=== PATIENT | male | born 1970 | race Caucasian/White ===

== ENCOUNTER 2019-06-17 09:42 | Outpatient (CLI) | payer OTHER, SELFPAY ==
--- NOTE | 2019-06-17 11:00 | NEURO_ITS ---
Patient Number: [id number] Impression: # Complains of left hand numbness. # Mild evolving left Carpal Tunnel Syndrome # Subtle early ulnar neuropathy. # Normal needle/EMG exam. # Clinical correlation recommended. Nerve Conduction Studies Anti Sensory Summary Table Stim Site NR Peak (ms) P-T Amp (?V) Site1 Site2 Delta-P (ms) Dist (cm) Manuel (m/s) Left Median Anti Sensory (2-3nd Digit) Wrist 3.5 22.8 Wrist 2-3nd Digit 3.5 14.0 40 Wrist 3.5 38.7 Wrist 2-3nd Digit 3.5 14.0 40 Left Radial Anti Sensory (Base 1st Digit) Wrist 1.9 21.4 Wrist Base 1st Digit 1.9 0.0 Left Ulnar Anti Sensory (5th Digit) Wrist 2.3 33.0 Wrist 5th Digit 2.3 14.0 61 Motor Summary Table Stim Site NR Onset (ms) O-P Amp (mV) Site1 Site2 Delta-0 (ms) Dist (cm) Manuel (m/s) Left Median Motor (Abd Poll Brev) Wrist 3.8 2.9 Elbow Wrist 4.6 30.0 65 Elbow 8.4 0.7 Left Ulnar Motor (Abd Dig Minimi) Wrist 2.5 4.6 A Elbow Wrist 5.6 33.0 59 A Elbow 8.1 4.0 F Wave Studies NR F-Lat (ms) L-R F-Lat (ms) Left Median (Mrkrs) (Abd Poll Brev) 30.04 Left Ulnar (Mrkrs) (Abd Dig Min) 28.67 EMG Side Muscle Nerve Root Ins Act Fibs Amp Dur Recrt Comment Left 1stDorInt Ulnar C8-T1 Nml Nml Nml Nml Nml Left Ext Indicis Radial (Post Int) C7-8 Nml Nml Nml Nml Nml Left Ext Digitorum Radial (Post Int) C7-8 Nml Nml Nml Nml Nml Left BrachioRad Radial C5-6 Nml Nml Nml Nml Nml Left PronatorTeres Median C6-7 Nml Nml Nml Nml Nml Left Abd Poll Brev Median C8-T1 Nml Nml Nml Nml Nml MTDD
== END 2019-06-17 09:43 | disposition home or self-care (01) ==
PROVIDERS: PCP Family Medicine; Visit Provider Orthopaedic Surgery
DX: G56.02 Carpal tunnel syndrome, left upper limb (principal)
CPT/HCPCS: 95886; 95909

== ENCOUNTER 2019-06-30 14:06 | Outpatient (CLI) | payer OTHER, SELFPAY ==
--- NOTE | ~2019-06-30 | XR_ITS ---
EXAMINATION: XR chest 2V 06/30/2019 14:23 INDICATION: Cough and nasal congestion for 3 weeks PROCEDURE: 2 view chest COMPARISON: No prior studies for comparison. FINDINGS: The lungs are clear. The cardiomediastinal silhouette is within normal limits. There are no pleural effusions. There is no pneumothorax suspected. IMPRESSION: 1: NO ACUTE CARDIOPULMONARY DISEASE. Reviewed, dictated and finalized at location B. OLOGY NURSE
--- NOTE | ~2019-06-30 | XR_ITS ---
XR sinus min 3V 06/30/2019 14:22 Indication: Cough and nasal congestion Procedure: 5 views of the paranasal sinuses Comparison: No prior studies for comparison. Findings: The paranasal sinuses are pneumatized. No air-fluid levels or significant opacification. Or bits are symmetric. Mastoids are pneumatized. No significant nasal septal deviation. Impression: 1: No significant abnormality of the paranasal sinuses. Reviewed, dictated and finalized at location B. EACH NURSE Impression: 1: No significant abnormality of the paranasal sinuses.
== END 2019-06-30 14:07 | disposition home or self-care (01) ==
PROVIDERS: PCP Family Medicine; Visit Provider Family Medicine
DX: R05 Cough (principal); R09.81 Nasal congestion
CPT/HCPCS: 70220; 71046

== ENCOUNTER 2019-07-09 08:03 | Outpatient (CLI) | payer OTHER, SELFPAY ==
--- NOTE | 2019-07-17 13:46 | SLEEP_ITS ---
CPAP BiPAP titration. DATE OF STUDY: 07/09/2019 REASON FOR THE STUDY: Known sleep apnea, poor response to AutoPAP. HISTORY: This patient is a 49-year-old male, 69 inches tall, weighing 250 pounds with a body mass index of 36.9. He has had ongoing complaints mainly regarding excessive daytime sleepiness and fatigue no matter how much sleep he gets. On April 03, 2018, he had a home sleep test, which showed equal numbers of central and obstructive apneas as well as hypopneas and desaturation. His Adrian Sleepiness Scale score was 11. A CPAP titration was recommended, but insurance preferred an AutoPAP, which he has been using with good compliance. At his last office visit on May 28, 2019, he had greater than 70% usage for greater than 4 hours per night. His initial apnea-hypopnea index was 11.3. Using AutoPAP, his AHI is 6.9. His average pressure is 10.9 cm of water. He feels some benefit from using CPAP, but not sufficient amounts, so he returns at this time for an in-lab titration. MEDICAL COMORBIDITIES: He has no chronic medical conditions, but he has had a tonsillectomy, a rotator cuff repair, and scrotum surgery. MEDICATIONS: Naprosyn 220 mg b.i.d. p.r.n. pain. HABITS: Never smoked tobacco. Caffeine, 4-5 servings per day. No alcohol. No recreational drugs. The patient rarely snores and others do not report that he snores, but others do report that he has breathing problems at night. He rarely sweats excessively at night. He rarely notices his heart pounding irregularly at night. He occasionally falls asleep during the day, never involuntarily, never while driving or with physical effort. He does not lose muscle tone with strong emotion. He rarely has daytime difficulty due to excessive sleepiness. 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 He does not feel paralyzed on waking or falling asleep and does not have vivid dreamlike scenes upon awakening or falling asleep. He is never afraid to go to sleep. He denies having nightmares. He occasionally remembers his dreams. He denies racing thoughts. He rarely feels sad or depressed. He does not have anxiety. He frequently has muscular tension and frequently notices parts of his body jerking. He denies kicking at night. He rarely has crawly achy feelings in his legs. He does not have leg pain at night. He rarely has morning jaw pain. He occasionally grinds his teeth. He frequently is bothered by pain during the day, rarely is awakened by pain at night. He frequently wakes up feeling stiff in the morning with sore achy muscles on occasion. He frequently has pain in the neck and spine on awakening. He has constant fatigue. He goes to bed at 10 p.m., falling asleep in 5-10 minutes, waking at night to go to the bathroom or get a drink of water. He wakes for the day at 5:45 a.m. He estimates 7-8 hours of sleep at night. Weekend schedule shows he stays up an hour later and he will wake 2 hours later. He does take naps in the afternoon or evening. A short nap is not refreshing. He is drowsy in the morning for 3 hours or longer. DESCRIPTION OF THE STUDY: On the Adrian Sleepiness Scale, his score is 11. This was conducted as a full night CPAP BiPAP titration using the [employer] multiple channel system including EOG, EEG, submental EMG, EKG, nasal and oral airflow using thermistors and nasal pressure sensors, chest and abdominal belts, body position data and pulse oximetry. This study was scored using CMS guidelines. The patient used a medium Haley View full face mask and heated humidity. CPAP was started at 5 cm, gradually increased to 17 cm before switching to bilevel. He had central apneas from the initial pressure and more central apneas than obstructive events throughout the remainder of the study. The recor
== END 2019-07-09 08:04 | disposition home or self-care (01) ==
LOC: ANHCSM 08:04
PROVIDERS: PCP Family Medicine; Visit Provider Nurse Practitioner Family
DX: G47.31 Primary central sleep apnea (principal); G47.61 Periodic limb movement disorder
CPT/HCPCS: 95811

== ENCOUNTER 2019-07-21 16:13 | Outpatient (CLI) | payer OTHER, SELFPAY ==
[2019-07-21 17:20] LABS: Basophils Percent Auto 0.2 % (0.2-1.2); Eosinophils Absolute Auto 0.1 K/mm3 (0-0.3); Eosinophils Percent Auto 0.6 % (0-4.4); Hematocrit 44.7 % (42.0-52.0); Hemoglobin 14.6 g/dL (14.0-18.0); Immature Granulocyte Absolute 0.03 K/mm3 (0.00-0.031); Immature Granulocyte Percent A 0.3 % (0-0.5); Lymphocytes Absolute Auto 2.43 K/mm3 (0.9-3.2); Lymphocytes Percent Auto 24.9 % (18.3-44.2); Mean Corpuscular HGB Conc 32.7 g/dl (32-36); Mean Corpuscular Volume 88.9 fl (80-100); Mean Platelet Volume 10.7 fl (7.4-10.4); Monocytes Absolute Auto 0.8 K/mm3 (0.1-0.6); Monocytes Percent Auto 7.8 % (2.6-8.5); Neutrophils Absolute Auto 6.5 K/mm3 (1.3-6.7); Neutrophils Percent Auto 66.2 % (45.5-73.1); Platelet Count Result 182 k/mm3 (150-375); Red Blood Count 5.03 M/mm3 (4.6-6.20); Red Cell Distribution Width 12.9 % (11.5-14.5); White Blood Count 9.8 K/mm3 (4.5-10.0)
[2019-07-21 18:34] LABS: Iron 54 ug/dL (49-181)
[2019-07-21 18:45] LABS: Percent Iron Saturation 18 % (20-50)
== END 2019-07-21 16:14 | disposition home or self-care (01) ==
LOC: ANHBWCLAB 16:17
PROVIDERS: PCP Family Medicine; Visit Provider Family Medicine
DX: G25.9 Extrapyramidal and movement disorder, unspecified (principal); Z79.899 Other long term (current) drug therapy
CPT/HCPCS: 36415; 82728; 83540; 83550; 85025

== ENCOUNTER 2019-07-24 08:43 | Outpatient (CLI) | payer OTHER, SELFPAY ==
--- NOTE | 2019-07-24 08:59 | ECHO_ITS ---
Patient Info Name: Faisal Shaw Age: 49 years : 1970 Gender: Male Ht: 69 in Wt: 240 lbs BSA: 2.34 m2 HR: 60 bpm BP: 135 / 78 mmHg Heart Rhythm: Sinus Rhythm Technical Quality: Good Exam Date: 07/24/2019 9:05 AM Exam Location: [facility] Patient Status: Outpatient Admit Date: 07/24/2019 Staff Ordering Physician: Lauri Fung DO Business Trainer: Huang Santoyo RDCS Attending Provider: Lauri Fung DO Referring Physician: Kenton BUTT; Exam Type: CA echo doppler color flow Study Info Indications R00.0 - Tachycardia, unspecified Complete two-dimensional, color flow and Doppler transthoracic echocardiogram is performed. Strain analysis performed. Summary 1. Left ventricular chamber dimension is normal. 2. Left ventricular systolic function is normal, estimated at 60-65%. 3. The left ventricular diastolic function is normal. 4. E/e' 6 is not elevated. 5. Global longitudinal strain is normal at -19.7%. Left Ventricle E/e' 6 is not elevated. Global longitudinal strain is normal at -19.7%. Left ventricular chamber dimension is normal. Left ventricular systolic function is normal, estimated at 60-65%. The left ventricular diastolic function is normal. Right Ventricle Right ventricular chamber dimension is normal. Right ventricular systolic function is normal. Left Atria Left atrial chamber dimension is normal. Right Atria Right atrial chamber dimension is normal. Aortic Valve The aortic valve is trileaflet. There is no aortic valve stenosis. There is no aortic valve regurgitation. Pulmonic Valve There is trace pulmonic regurgitation. Mitral Valve There is no mitral valve stenosis. There is trace mitral valve regurgitation. Tricuspid Valve There is no tricuspid valve regurgitation. Pericardium/Pleural The pericardium appears normal. Inferior Vena Cava Normal inferior vena cava with >50% collapse upon inspiration consistent with normal right atrial pressure, 5 mmHg. Aorta The aortic root size at the sinus of Valsalva is normal. Left Ventricular Outflow Tract Name Value Normal LVOT 2D LVOT Diameter 2.1 cm LVOT Doppler LVOT Peak Gradient 6 mmHg LVOT Mean Gradient 3 mmHg LVOT VTI 22 cm LVOT VTI/AV VTI Ratio 0.8 LVOT Stroke Volume 74 ml LVOT CO 4.2 l/min LVOT CI 1.8 l/min/m2 Mitral Valve Name Value Normal MV Doppler MV Decel [place] 498 cm/s2 MV PHT 52 ms MV Area (PHT) 4.2 cm2 4.0-5.0 MV Diastolic Function
== END 2019-07-24 08:44 | disposition home or self-care (01) ==
PROVIDERS: PCP Family Medicine; Visit Provider Family Medicine
DX: R00.0 Tachycardia, unspecified (principal)
CPT/HCPCS: 93306

== ENCOUNTER → 2020-06-14 12:45 | Outpatient (CLI) | payer OTHER, SELFPAY ==
--- NOTE | ~2020-06-14 | CT_ITS ---
EXAMINATION: CT sinus wo con DATE: 06/14/2020 13:09 INDICATION: Acute recurrent sinusitis. Chronic sinusitis. TECHNIQUE: Computed tomography (CT) of the paranasal sinuses was performed without contrast. Iterativ e reconstruction technique was employed. Exam dose: 291.51 mGy-cm total exam DLP. COMPARISON: 06/30/2019 sinuses FINDINGS: There is prominent leftward deviation of the nasal septum superiorly. There is prominent rahat bullosa and intralamellar cell of the right middle nasal turbinate. There i s no soft tissue swelling of the nasal turbinates bilaterally. The ostiomeatal units are patent. There is opacification of posterior right ethmoid air cells. 4 mm probable mucus retention cyst along the inferomedial wall of the right maxillary sinus anteriorly. Slight mucoperiosteal thickening lizett g the anterior wall of the sphenoid sinuses. The paranasal sinuses are otherwise normally developed a nd aerated. The mastoid air cells are normally developed and aerated. Middle and inner ear apparatus are normal bilaterally. IMPRESSION: Prominent leftward deviation of the nasal septum Prominent soft tissue thickening of the nasal turbinates Rahat bullosa and intralamellar cell of right middle nasal turbinate Opacification of posterior right ethmoid air cells Small mucus retention cyst of left maxillary sinus Minimal soft tissue thickening along the anterior wall of the sphenoid sinuses Reviewed, dictated and finalized at Location A. Reviewed, dictated and finalized at location B. 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
== END ==
PROVIDERS: PCP Family Medicine; Visit Provider Otolaryngology
DX: J01.91 Acute recurrent sinusitis, unspecified (principal); J34.2 Deviated nasal septum
CPT/HCPCS: 70486

== ENCOUNTER → 2020-06-14 12:48 | Outpatient (CLI) | payer OTHER, SELFPAY ==
--- NOTE | ~2020-06-14 | CT_ITS ---
EXAMINATION: CT diagnostic chest wo con DATE: 06/14/2020 13:10 INDICATION: Persistent cough and GERD, interstitial lung disease TECHNIQUE: Computed tomography (CT) of the chest was performed without intravenous contrast. The dose -length product (DLP) was 762.45 mGy-cm. Automated exposure control and iterative reconstruction tech nique were employed. COMPARISON: None FINDINGS: There is a 7 mm groundglass nodule of the right lower lobe on image 78 without solid nodula r component. Fissural lymph nodes are noted in the left major fissure. No focal airspace opacities ar e identified. There is no pleural effusion or pneumothorax. No pathologically enlarged thoracic lymph nodes are identified. The heart size is normal. There is mild thoracic spondylosis. IMPRESSION: 1. 7 mm subsolid nodule of the right lower lobe. Follow-up low-dose CT in 6-12 months is recommended. Reviewed, dictated and finalized at location A. 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
== END ==
PROVIDERS: PCP Family Medicine; Visit Provider Nurse Practitioner Family
DX: R05 Cough (principal); R92.8 Other abnormal and inconclusive findings on diagnostic imaging of breast
CPT/HCPCS: 71250

== ENCOUNTER 2020-07-18 06:31 | Outpatient (CLI) | payer OTHER, SELFPAY ==
--- NOTE | 2020-07-18 06:45 | ECHO_ITS ---
Patient Info Name: Faisal Shaw Age: 50 years : 1970 Gender: Male Ht: 69 in Wt: 250 lbs BSA: 2.40 m2 HR: 52 bpm BP: 144 / 76 mmHg Technical Quality: Good Exam Date: 07/18/2020 6:50 AM Exam Location: [facility] Patient Status: Outpatient Admit Date: 07/18/2020 Staff Ordering Physician: Azam Collins APRN [employer]ressed Air Pile Driver Operator: Ai Sen RDCS Attending Provider: Azam Collins APRN Referring Physician: Dennis LOCKETT; Exam Type: CA echo doppler color flow Study Info Indications R06.02 - Shortness of breath Complete two-dimensional, color flow and Doppler transthoracic echocardiogram is performed. Summary 1. Complete two-dimensional, color flow and Doppler transthoracic echocardiogram is performed. 2. Left ventricular chamber dimension is normal. 3. Left ventricular systolic function is normal, estimated at 60-65%. 4. The left ventricular diastolic function is normal. 5. E/e' 8 is minimally elevated. 6. Global longitudinal strain is normal at -17.9%. 7. There is trace mitral valve regurgitation. 8. No pulmonary hypertension, estimated pulmonary arterial systolic pressure is 19 mmHg. Left Ventricle E/e' 8 is minimally elevated. Global longitudinal strain is normal at -17.9%. Left ventricular chamber dimension is normal. Left ventricular systolic function is normal, estimated at 60-65%. The left ventricular diastolic function is normal. Right Ventricle Right ventricular chamber dimension is normal. Right ventricular systolic function is normal. Left Atria Left atrial chamber dimension is normal. Right Atria Right atrial chamber dimension is normal. Aortic Valve The aortic valve is trileaflet. There is no aortic valve stenosis. There is no aortic valve regurgitation. Pulmonic Valve There is no pulmonic regurgitation. Mitral Valve There is no mitral valve stenosis. There is trace mitral valve regurgitation. Tricuspid Valve There is no tricuspid valve regurgitation. No pulmonary hypertension, estimated pulmonary arterial systolic pressure is 19 mmHg. Pericardium/Pleural There is no pericardial effusion. Inferior Vena Cava Normal inferior vena cava with >50% collapse upon inspiration consistent with normal right atrial pressure, 5 mmHg. Aorta The aortic root size at the sinus of Valsalva is normal. Left Ventricular Outflow Tract Name Value Normal LVOT 2D LVOT Diameter 2.0 cm LVOT Doppler LVOT Peak Gradient 7 mmHg LVOT Mean Gradient 3 mmHg LVOT VTI 28 cm LVOT VTI/AV VTI Ratio 1.0 LVOT Stroke Volume 89 ml LVOT CO 5.3 l/min LVOT CI 2.2 l/min/m2 Pulmonic Valve Name Value Normal RVOT Doppler
== END 2020-07-18 06:32 | disposition home or self-care (01) ==
PROVIDERS: PCP Family Medicine; Visit Provider Nurse Practitioner Family
DX: R06.02 Shortness of breath (principal)
CPT/HCPCS: 93306

== ENCOUNTER → 2020-08-03 01:58 | Outpatient (CLI) | payer OTHER, SELFPAY ==
[2020-08-03 17:07] LABS: SARS-CoV-2 RNA PCR Negative
== END ==
PROVIDERS: PCP Family Medicine; Visit Provider Internal Medicine Critical Care Medicine
DX: Z01.812 Encounter for preprocedural laboratory examination (principal); Z20.822 Contact with and (suspected) exposure to COVID-19
CPT/HCPCS: C9803; U0003; U0005

== ENCOUNTER 2020-08-05 09:27 | Outpatient (CLI) | payer OTHER, SELFPAY ==
[2020-08-22 14:06] VITALS: BMI 36.1
--- NOTE | 2020-08-22 14:06 | WPDSLEEPSTUD ---
Sleep Study Date of Study: 08/05/20 Ordering Provider: Azam Collins APRN Interpreting Physician: Parvin Díaz MD Sleep Study Type: ASV Height: 1.75 m Weight: 111.13 kg Body Mass Index: 36.1 Neck Circumference (inches): 17 Burton: 14 Reason for Sleep Study Complex sleep apnea, poor response to autoPAP, presents for Adaptive servo-ventilation or ASV titration Echo on 07/18/2020 shows left ventricular systolic function is normal, estimated at 60-65%. 07/09/2019 CPAP BiPAP titration with central apneas 50% of the study, no optimal pressure 04/03/2018 Home sleep test with mild RADHA Adaptive servo-ventilation is a form of bilevel positive airway pressure use to treat central sleep apnea which provides dynamic, breath by breath, adjustment of inspiratory pressure and an auto backup rate to normalize breathing rate. Sleep History complex sleep apnea; has not responded to autoPAP, presents for ASV titration 07/09/2019 CPAP BiPAP titration with central apneas 50% of the study, no optimal pressure 04/03/2018 Home sleep test with mild RADHA AHI 11.3, 50% central and 50% obstructive apneas Faisal Shaw is a 50 year old man Who is constantly tired. He never seems to get enough sleep. This is been going on for years. He has multiple awakenings during the night and he is excessively sleepy in the day. He started CPAP in 2018 but this did not work. He frequently snores, occasionally loudly enough that others complain about it. He does not awaken at night with heartburn, belching or coughing. Does not awaken from sleep feeling short of breath. He rarely has trouble sleep with a cold. He does not wake up gasping for breath at night. He occasionally has breathing problems at night. He rarely sweats excessively at night. He frequently notices his heart pounding or beating irregularly at night. He does not fall asleep during the day or involuntarily, he does not fall asleep while driving. He does not have loss of muscle tone with strong emotion. He occasionally has daytime difficulties due to excessive sleepiness. He does not feel paralyzed on waking or falling asleep. He does not have vivid dreamlike scenes upon awakening or falling asleep. He does not feel afraid to go to sleep. He denies having nightmares. He constantly remembers his dreams. He does not have racing thoughts. He does not feel sad or depressed. He rarely feels anxious. He frequently has muscular tension and frequently notices part parts of his body jerking. He rarely kicks at night. He does not have crawling or aching feelings in his legs. He does not have any kind of leg pain at night. He occasionally has morning jaw pain. He occasionally grind his teeth during sleep. He frequently has bothered by pain during the day. He rarely is awakened by pain at night. He frequently wakes up feeling stiff in the morning with sore or achy muscles and pain in the neck and spine. Normal bedtime is 10:00 p.m. falling asleep within 5-10 minutes, waking once at night to urinate and get a drink of water. He is able to return to sleep within 2-3 minutes. He wakes the morning at 6:15 a.m.. On the weekends, he goes to bed at 10:00 p.m. and wakes at 7:00 a.m.. He does take naps in the afternoon or evening. A short nap is not refreshing. He is drowsy in the morning for 3 hours or longer. He feels better in the evening. Habits: Never smoked tobacco. Caffeine 3-4 servings a day. No alcohol or recreational drugs. [facility] Past Medical History Medical History Acute bacterial sinusitis Acute recurrent sinusitis Carpal tunnel syndrome on left Chronic cough Cough (~05/2019) Seasonal allergies Sleep apnea Trigger finger of right hand Surgical History Surgical History H/O umbilical hernia repair History of repair of rotator cuff (~1992) History of tonsillectomy S/P scrotal varicoce
== END 2020-08-05 09:28 | disposition home or self-care (01) ==
LOC: ANHCSM 09:27
PROVIDERS: PCP Family Medicine; Visit Provider Nurse Practitioner Family
DX: G47.31 Primary central sleep apnea (principal)
CPT/HCPCS: 95811

== ENCOUNTER 2020-12-12 09:57 | Outpatient (CLI) | payer OTHER, SELFPAY ==
--- NOTE | ~2020-12-12 | CT_ITS ---
EXAMINATION: CT diagnostic chest wo con DATE: 12/12/2020 10:54 INDICATION: Lung nodule follow-up TECHNIQUE: Computed tomography (CT) of the chest was performed without intravenous contrast. The dose -length product was 248.41 mGy-cm. Automated exposure control and iterative reconstruction technique were employed. COMPARISON: CT dated 06/14/2020 FINDINGS: Heart size normal. No significant pleural or pericardial effusion. No thoracic lymphadenopa thy. No significant vascular abnormality. No soft tissue abnormality. The upper abdomen is unremarkab le. No acute osseous abnormality. Stable 7 mm groundglass nodule right lower lobe, image 77. There is a small 3 mm fissural nodule on the left, image 59, likely benign. No endobronchial lesions. IMPRESSION: 1. Probable benign bilateral lung nodules. Follow-up low dose CT chest in 12 months recommended. Reviewed, dictated and finalized at location A. IMPRESSION: 1. Probable benign bilateral lung nodules. Follow-up low dose CT chest in 12 mo nths recommended.
== END 2020-12-12 09:58 | disposition home or self-care (01) ==
LOC: ANHIMG 10:02
PROVIDERS: PCP Family Medicine; Visit Provider Nurse Practitioner Family
DX: R91.8 Other nonspecific abnormal finding of lung field (principal)
CPT/HCPCS: 71250

== ENCOUNTER 2021-03-17 09:43 | Emergency (ER) | payer OTHER, SELFPAY ==
[2021-03-17 09:47] VITALS: BP 117/66; PULSE 60; RESP 14; TEMP 36.1; O2SAT 99
--- NOTE | 2021-03-17 11:39 | ED.ABDPAIN ---
HPI - Abdominal Pain General Chief Complaint: Abdominal Pain Stated Complaint: umbilical hernia pain Time Seen by Provider: 03/17/21 11:17 Source: patient Mode of arrival: ambulatory Limitations: no limitations History of Present Illness HPI narrative: This is a 50-year-old male that presents to the emergency department for an umbilical hernia. Patient has had a known umbilical hernia. Has seen Dr. Jordan for this in the office about a year ago. Recommended repair, but patient was advised to lose some weight prior to. Patient has lost the weight, but has not contacted surgeon again for appointment for surgery. Today his hernia was stuck and he was having trouble reducing it. Upon arrival into his room in the ER he was able to reduce hernia with relief of pain. Denies fever, or current abdominal pain. Related Data Allergies Allergy/AdvReac Type Severity Reaction Status Date / Time No Known Allergies Allergy Verified 01/25/21 15:56 Review of Systems Review of Systems: CONSTITUTIONAL: Denies fever GASTROINTESTINAL: Reports abdominal pain, nausea, vomiting All systems reviewed & are unremarkable except as noted in HPI and below PMFSH Past Medical History Medical History Acute bacterial sinusitis Acute recurrent sinusitis BMI 35.0-35.9,adult Carpal tunnel syndrome on left Chronic cough Cough (~05/2019) Seasonal allergies Sleep apnea Trigger finger of right hand Surgical History Surgical History H/O umbilical hernia repair History of repair of rotator cuff (~1992) History of tonsillectomy S/P scrotal varicocelectomy (~1991) Status post excision of lipoma (~05/23/18) Rt elbow Family History Family History Father Emphysema of lung Pulmonary fibrosis Social History Social History Smoking status: Never smoker Second hand tobacco smoke exposure: No Alcohol intake: current Exam Narrative: GENERAL: Well-appearing, well-nourished, and in no acute distress. HEAD: Normocephalic, atraumatic. EYES: EOMI. CHEST: Clear to auscultation. No respiratory distress. No wheezes rales or rhonchi HEART: Regular rate and rhythm. No murmur heard. Normal peripheral pulses. ABDOMEN: Soft, nontender, nondistended, normal active bowel sounds. No active bulging of hernia EXTREMITIES: Normal range of motion. No edema. SKIN: Warm, dry, no rash. NEURO: No focal deficits. Alert and oriented x3. PSYCH: Normal mood and affect Course Vital Signs Vital signs: Vital Signs Temperature 97.0 F L 03/17/21 09:47 Pulse Rate 60 03/17/21 09:47 Respiratory Rate 14 03/17/21 09:47 Blood Pressure 117/66 03/17/21 09:47 Pulse Oximetry 99 03/17/21 09:47 Temperature 97.0 F L 03/17/21 09:47 Pulse Rate 60 03/17/21 09:47 Respiratory Rate 14 03/17/21 09:47 Blood Pressure 117/66 03/17/21 09:47 Pulse Oximetry 99 03/17/21 09:47 MDM - Abdominal Pain MDM Narrative Medical decision making narrative: Patient presents to the emergency department for umbilical hernia. This is known to the patient and he has seen Dr. Jordan for this in the past. Was recommended surgical repair, but has not made appointment for this yet. He presented today as he was having trouble getting the hernia reduced. Once he arrived into his ED room he was able to successfully reduce the hernia. His pain was relieved. No concerning findings on exam. He was instructed to follow-up with his surgeon. He was given warnings to return to the ER Critical Care Time Critical Care Time Critical Care Time: No Discharge Plan Discharge Clinical Impression: Umbilical hernia Qualifiers: Obstruction and gangrene presence: without obstruction or gangrene Qualified Code(s): K42.9 - Umbilical hernia without obstruction or henok
== END 2021-03-17 11:56 | disposition home or self-care (01) ==
PROVIDERS: Emergency Provider Emergency Medicine
DX: K42.9 Umbilical hernia without obstruction or gangrene (principal); G47.30 Sleep apnea, unspecified
CPT/HCPCS: 99281

== ENCOUNTER → 2021-04-14 03:47 | Outpatient (CLI) | payer OTHER, SELFPAY ==
[2021-04-15 16:08] LABS: SARS-CoV-2 RNA PCR Negative (Negative)
== END ==
PROVIDERS: Visit Provider Surgery
DX: Z20.822 Contact with and (suspected) exposure to COVID-19 (principal)
CPT/HCPCS: C9803; U0003; U0005

== ENCOUNTER 2021-04-17 02:21 | Day surgery (SDC) | payer OTHER, SELFPAY ==
[2021-04-06 13:28] VITALS: BMI 31.8
--- NOTE | 2021-04-06 13:43 | PC.NURSE ---
Report to the Outpatient Waiting Room, entrance under the green pavilion located off [facility], at time 0845 on date 04/17/21 OR Time:1045. - You and your visitor will be asked a series of questions to screen for COVID 19 for your protection. - A mask is required within the hospital. - Only one visitor is allowed at this time. Patient visitors will be guided where to wait when not with patient. Preoperative COVID Testing Requirements: No COVID Test needed if: (proof is required; if not received patient will have Rapid Test prior to entry) - Patient has received COVID Vaccine at least 14 days prior to procedure date or - Patient has positive COVID test result within last 90 days of surgery date. COVID Test needed if above criteria is not met If not COVID vaccinated a COVID test must be conducted within 72 hours of surgery and patient is asked to isolate self from time of testing until procedure. You will go to the [employer] [facility] for your COVID testing. The [employer] [facility] is located at the corner of [address] [facility]. You will only be called if COVID results are positive and your surgeon may reschedule your elective surgery date. Patients may have clear liquids (water, carbonated beverages, clear teas, apple juice) until 3 hours prior to surgery with a maximum of 20 ounces. - No food from midnight until time of surgery - Infants may have breast milk until 4 hours before surgery, infant formula 6 hours prior to surgery. - Children will be allowed to drink immediately following surgery. If applicable, please bring a bottle or sippy cup to assist with drinking. Juice, water, soda, and popsicles are readily available. For infants on formula, please bring formula the day of surgery. Pacifiers are allowed. Take the following medications with a SIP of water the morning of surgery: none Medications to discontinue per physician none Date to take last dose Please no make-up, nail yakut, hairspray, perfume, deodorant, or body powder the day of surgery. No jewelry (including any body piercings) or valuables the day of surgery, leave them at home. Please take a shower or bath the night before, or the morning of, surgery with an antibacterial soap. Wear comfortable, loose fitting clothing. Children are encouraged to wear pajamas. - Jewelry must be removed prior to entering the operating room. Rings and piercings that are not removed may be cut off. - The hospital will not accept responsibility for valuables. - Please leave all valuables, including medications, at home the day of surgery. -Patient to use hibiclens soap If you are going home after surgery, a licensed dedicated regional driver must drive you home. - NO public transportation without another adult. - We recommend that an adult stay with you for 24 hours following discharge. - We also recommend that you do not drive, make important decision, drink alcoholic beverages, or take any drugs that were not prescribed by your health care provider for at least 24 hours after your discharge time. For Pediatric surgeries, we recommend two adults accompany the child home (only one inside the building at this time). Follow any additional instructions given to you from your surgeon. Telephone instructions given to Faisal Shaw and asked if any additional questions and then verbalized understanding. Patient advised to call surgeon office or pre surgery nurse liaison [phone] if any additional questions.
--- NOTE | 2021-04-14 15:04 | WPDANESEPPF ---
Anes - Initial Pre Proc Eval Procedure: Operation Date: 04/17/21 11:00 Proposed Procedures p Laparoscopic Umbilical Hernia Repair with Mesh - Mann Jordan MD Date/Time: 04/14/21 15:04 Surgeon: Mann Jordan MD Pre Op Diagnosis: Umb Hernia Patient Data Age: 51 Gender: M Height: 1.75 m Weight: 98 kg Allergies Allergy/AdvReac Type Severity Reaction Status Date / Time No Known Allergies Allergy Verified 04/17/21 08:56 Home Medications Medication Instructions Recorded Confirmed Type ipratropium bromide 21 mcg (0.03 2 spray INTRANASAL BID #30 ml 04/03/21 04/17/21 Rx %) nasal spray Patient hx anesthesia problems: none Family hx anesthesia problems: none Results Review: All pre-operative results and documents have been reviewed as part of the pre-operative evaluation. COUNT INCLUDES THE [facility] Past Medical History Medical History Acute bacterial sinusitis Acute recurrent sinusitis BMI 35.0-35.9,adult Carpal tunnel syndrome on left Chronic cough Cough (~05/2019) Seasonal allergies Sleep apnea Trigger finger of right hand Surgical History Surgical History H/O umbilical hernia repair History of repair of rotator cuff (~1992) History of tonsillectomy S/P scrotal varicocelectomy (~1991) Status post excision of lipoma (~05/23/18) Rt elbow Family History Family History Father Emphysema of lung Pulmonary fibrosis Social History Social History Smoking status: Never smoker Second hand tobacco smoke exposure: No Alcohol intake: current Substance use: never Living arrangements: with family Spiritual care concerns: No Anes - Eval Final PreProcedure Day of Procedure 04/14/21 15:04 Patient weight: obese Heart: regular rate and rhythm Lungs: clear to auscultation Airway: Mallampati scale class II Neurological: alert and oriented Last oral intake: >/= 8 hours ASA classification: II Emergent: no Anesthetic plan: proceed Anesthesia type and monitoring: general and standard monitoring Results Review: All pre-operative results and documents have been reviewed as part of the pre-operative evaluation. Informed Consent: The patient's anesthetic plan and its attendant risks and benefits were discussed with the patient/family/POA. Questions were solicited and answers provided to the satisfaction of the patient/family/POA.
[2021-04-17] VITALS (12 sets, daily range): BP systolic 111–136; BP diastolic 61–89; PULSE 56–84; RESP 12–18; TEMP 36.1–36.6; O2SAT 95–100
[2021-04-17] MEDS: ACETAMINOPHEN 500 MG TABLET 1000 MG PO (09:35)
--- NOTE | 2021-04-17 09:36 | WPDHPUPDATE1 ---
History and Physical Update Update Date/Time: 04/17/21 09:36 History and Physical has been reviewed, including an updated exam of the patient. There are NO changes in the patient's condition. Risks, benefits, and alternatives have been discussed and questions answered. Patient agrees to proceed with procedure.
[2021-04-17] MEDS: KETOROLAC 15 MG/ML VIAL (*BKC) IV PUSH (09:49)
[2021-04-17] MEDS: LACTATED RINGERS 1,000 ML 30 ML IV CONT ×3 (09:49→14:29)
[2021-04-17] MEDS: ceFAZolin 2 GM/D5W 50 ML 2 GM/50 ML BAG IVPB (10:00)
--- NOTE | 2021-04-17 12:53 | W.PM.PROC2 ---
Procedure Note - Detailed Date of Procedure 04/17/21 Pre-op Diagnosis 1.Umbilical Hernia 2. Obesity (BMI 33) Post-op Diagnosis other (1. Umbilical hernia without incarceration 2. Obesity (BMI 33) 3. Bilateral small asymptomatic indirect inguinal hernias) Procedure Performed Laparoscopic umbilical hernia repair with mesh Surgeon Mann Jordan MD Production Boring Machine Operator Hyun MOLINA, [place] mortgage assistant Anesthesia general Indications Patient is a 51-year-old obese white male who has lost some weight over the last 6 months but recently had a episode of incarceration of something in his umbilical hernia. He had to go the emergency room and have it reduced. Because of this the risks benefits possible complications of a open versus laparoscopic Sebastian of bili Koul repair have been described to him in he decided on laparoscopic approach with mesh. Findings Approximately 2 cm diameter umbilical defect without anything incarcerated in it. There was significant preperitoneal fat above and below the umbilicus. Also noted were very small openings to bilateral indirect inguinal hernias. Description of Procedure DESCRIPTION OF PROCEDURE: The patient was placed in the supine position on the operative table and after induction of adequate general endotracheal anesthesia by David Anesthesia, the entire abdomen was prepped and draped in usual sterile fashion and the head placed slightly up. An Ioban drape was used to prevent contact of the mesh with the skin during this clean case. Following this, local anesthetic was placed and a spot selected about two fingerbreadths below the costal margin on the left and a small incision made after instilling local anesthetic using 0.25% Marcaine with epinephrine. Following this, a Veress needle technique using the water drop test was completed. Using 2 towel clips on the skin, I carefully elevated the skin and then passed the Veress needle into the abdomen and we could see that the saline droped through the Veress needle easily. CO2 gas was connected and the abdomen was insufflated to 14 mm Hg pressure. Following this, the 0 degree 5 mm laparoscope was placed inside a 5 mm trocar, which was carefully twisted into the abdomen without difficulty, seeing a open pneumoperitoneum as we entered. Thus, the trocar was removed, the sleeve confirmed to be nicely within the abdomen, and we carefully inspected the anterior abdomen. Careful inspection of the abdomen revealed no inguinal hernias. A small defect in the umbilicus that was actually difficult to see initially, but after placing a 12 mm port in the left lower quadrant under direct vision with the laparoscope, we could see up into a 20 mm defect that had been measured then with an instrument with a known cm marker. There was no incarceration of any omentum or any other adhesions to the underside of the umbilicus. There was fat from the urachus coming up into the area which might inhibit the tacks that I was planning to place through the mesh, therefore this was taken down with Bovie cautery. there was also some fat along the midline extending up to the falciform ligament. I also took this down and removed that preperitoneal fat . We had a little bleeding from this, and lost about 5 mL of blood. This was nicely cauterized and then moved out of the way. This was pre-peritoneal fat and it was removed from the abdomen and passed off the field but not sent as specimen. Following this, we carefully planned by measuring the defect. Our mesh, a circular 11 cm piece of Venta-lite mesh was chosen, so that we would have 4.5 cm of overlap in all directions over the circular umbilical defect. Following this, the Bard Ventra-lite balloon hernia system mesh was rolled and this was inserted through the LLQ 12 mm port after rolling it to protect the absorbable covering on the downside of the mesh. A black silk suture was placed through the blue system a loop that is used to extract the tubin
[2021-04-17] MEDS: ONDANSETRON INJ 4 MG/2 ML VIAL IV PUSH (13:36)
[2021-04-17] MEDS: SCOPOLAMINE 1.5 MG PATCH TRANSDERM (14:26)
[2021-04-17] MEDS: diphenhydrAMINE HCl INJ 50 MG/ML VIAL 12.5 MG IV PUSH (14:29)
== END 2021-04-17 15:10 | disposition home or self-care (01) ==
PROVIDERS: Visit Provider Surgery
PROC: (CPT 49652; principal; 2021-04-17 11:00)
DX: K42.9 Umbilical hernia without obstruction or gangrene (principal); K40.20 Bilateral inguinal hernia, without obstruction or gangrene, not specified as recurrent; E66.9 Obesity, unspecified; Z68.34 Body mass index [BMI] 34.0-34.9, adult
CPT/HCPCS: 49652; A9270; C1781; J0690; J1100; J1170; J1200; J1885; J2250; J2405; J2704; J2710; J3010; J7120

== ENCOUNTER → 2021-12-15 09:11 | Outpatient (CLI) | payer OTHER, SELFPAY ==
--- NOTE | ~2021-12-15 | CT_ITS ---
EXAMINATION: CT diagnostic chest wo con DATE: 12/15/2021 09:32 INDICATION: Solitary pulmonary nodule TECHNIQUE: Computed tomography (CT) of the chest was performed without intravenous contrast. The dose -length product was 369.25 mGy-cm. Automated exposure control and iterative reconstruction technique were employed. COMPARISON: None FINDINGS: Heart size normal. No thoracic lymphadenopathy. No significant pleural or pericardial effus ion. No endobronchial lesion. Stable 3 mm fissural nodule on the left, image 59. No focal airspace co nsolidation. Stable 7 mm groundglass nodule right lower lobe. No thoracic lymphadenopathy. Mild thora cic spondylosis. IMPRESSION: 1. Stable benign-appearing bilateral pulmonary nodules. Follow-up low dose CT chest in 12 months mulugeta mmended. Reviewed, dictated and finalized at location B. IMPRESSION: 1. Stable benign-appearing bilateral pulmonary nodules. Follow-up low dose CT c hest in 12 months recommended.
== END ==
PROVIDERS: PCP Nurse Practitioner Family; Visit Provider Nurse Practitioner Family
DX: R91.8 Other nonspecific abnormal finding of lung field (principal)
CPT/HCPCS: 71250

== ENCOUNTER 2022-03-09 01:39 | Day surgery (SDC) | payer OTHER, SELFPAY ==
[2022-03-02 11:30] VITALS: BMI 35.4
[2022-03-09 08:43] VITALS: BP 120/72; PULSE 63; RESP 18; TEMP 36.4; O2SAT 99
--- NOTE | 2022-03-09 08:51 | WPDANESEPPF ---
Anes - Initial Pre Proc Eval Procedure: Operation Date: 03/09/22 10:00 Proposed Procedures p Screening Colonoscopy - Shadi Barclay MD Date/Time: 03/09/22 08:51 Surgeon: Shadi Barclay MD Pre Op Diagnosis: neoplasm screening Patient Data Age: 51 Gender: M Height: 1.75 m Weight: 114.2 kg Last Vital Signs Temp 36.4 C L 03/09/22 08:43 Pulse 63 03/09/22 08:43 Resp 18 03/09/22 08:43 BP 120/72 03/09/22 08:43 Pulse Ox 99 03/09/22 08:43 O2 Del Method Room Air 03/09/22 08:43 Allergies Allergy/AdvReac Type Severity Reaction Status Date / Time No Known Allergies Allergy Verified 03/09/22 08:42 Home Medications Medication Instructions Recorded Confirmed Type No Home Medications 12/25/21 03/02/22 History Patient hx anesthesia problems: none Family hx anesthesia problems: none Results Review: All pre-operative results and documents have been reviewed as part of the pre-operative evaluation. [facility] Past Medical History Medical History Acute bacterial sinusitis Acute recurrent sinusitis BMI 35.0-35.9,adult Carpal tunnel syndrome on left Chronic cough Cough (~05/2019) Seasonal allergies Sleep apnea Trigger finger of right hand Surgical History Surgical History H/O umbilical hernia repair 04/17/21 History of repair of rotator cuff (~1992) History of tonsillectomy S/P scrotal varicocelectomy (~1991) On the left side x 2. 4 and also '93 Status post excision of lipoma (~05/23/18) Rt elbow Family History Family History Father Emphysema of lung Pulmonary fibrosis Social History Social History Smoking status: Never smoker Second hand tobacco smoke exposure: No Alcohol intake: current Drinks per week: 1 Substance use: never Substance use type: does not use Living arrangements: with family Spiritual care concerns: No Anes - Eval Final PreProcedure Day of Procedure 03/09/22 08:51 Patient weight: obese Heart: regular rate and rhythm Lungs: clear to auscultation Airway: Mallampati scale class II Neurological: alert and oriented Last oral intake: >/= 8 hours ASA classification: III Emergent: no Anesthetic plan: proceed Anesthesia type and monitoring: general GIVS and standard monitoring Results Review: All pre-operative results and documents have been reviewed as part of the pre-operative evaluation. Informed Consent: The patient's anesthetic plan and its attendant risks and benefits were discussed with the patient/family/POA. Questions were solicited and answers provided to the satisfaction of the patient/family/POA.
[2022-03-09] MEDS: LACTATED RINGERS 1,000 ML 150 ML IV CONT (08:56)
--- NOTE | 2022-03-09 09:00 | PM.HPGS ---
History of Present Illness History of Present Illness Consent: Risks, benefits, and alternatives have been discussed and questions answered. Patient agrees to proceed with procedure. Chief complaint: neoplasm screening Narrative: Faisal Shaw is a 51 year old male here for first screening colonoscopy Review of Systems Constitutional: Constitutional: Denies headache(s) and Denies weakness Eyes: Eyes: Denies blurry vision ENT: Reports Normal hearing present, Denies headache(s) and Denies neck pain Cardiovascular: Cardiovascular: Denies chest pain and Denies dyspnea Respiratory: Respiratory: Denies dyspnea Gastrointestinal: Gastrointestinal: Reports no additional gastrointestinal complaints Genitourinary: Genitourinary: Denies dysuria Musculoskeletal: Musculoskeletal: Denies neck pain Integumentary/Breasts: Skin/Breast: Denies dry skin Neurologic: Reports Normal hearing present, Denies headache(s) and Denies weakness Psychiatric: Psychiatric: Denies anxiety Endocrine: Endocrine: Denies change in body appearance Hematologic/Lymphatic: Hematologic/Lymphatic: Denies easy bleeding Allergic/Immunologic: Allergic/Immunologic: Denies urticaria PMFSH Past Medical History Medical History Acute bacterial sinusitis Acute recurrent sinusitis BMI 35.0-35.9,adult Carpal tunnel syndrome on left Chronic cough Cough (~05/2019) Seasonal allergies Sleep apnea Trigger finger of right hand Surgical History Surgical History H/O umbilical hernia repair 04/17/21 History of repair of rotator cuff (~1992) History of tonsillectomy S/P scrotal varicocelectomy (~1991) On the left side x 2. 4/ and also '93 Status post excision of lipoma (~05/23/18) Rt elbow Family History Family History Father Emphysema of lung Pulmonary fibrosis Social History Social History Smoking status: Never smoker Second hand tobacco smoke exposure: No Alcohol intake: current Drinks per week: 1 Substance use: never Substance use type: does not use Living arrangements: with family Spiritual care concerns: No Meds Home Medications and Allergies Home Medications Medication Instructions Recorded Confirmed Type No Home Medications 12/25/21 03/02/22 History Allergies Allergy/AdvReac Type Severity Reaction Status Date / Time No Known Allergies Allergy Verified 03/09/22 08:42 Vital Signs Vital Signs - 24 hr 03/09/22 08:43 Temperature 97.5 F L Pulse Rate 63 Respiratory Rate 18 Blood Pressure 120/72 Pulse Oximetry 99 Oxygen Delivery Room Air Exam Const: General: comfortable and no acute distress HENMT: Face/Nose/Sinus: Normal nares present Eyes: General: appearance normal, both eyes and all related structures Neck: Neck: no JVD Resp: Auscultation: clear to auscultation bilaterally Cardio: Rate: regular rate Rhythm: regular rhythm GI: Inspection: non-distended GI Palp: Yes Soft to palpation Skin: General skin exam: normal color Neuro: General: gait normal Speech: normal speech Extrem: General: normal to inspection Psych: Mental Status: mental status grossly normal Assessment and Plan Assessment and plan (1) Colon cancer screening: Code(s): Z12.11 - Encounter for screening for malignant neoplasm of colon Status: Acute Assessment and Plan: colonoscopy
[2022-03-09 09:14] VITALS: BP 90/45; PULSE 60; RESP 14; O2SAT 97
[2022-03-09 09:24] VITALS: BP 102/46; PULSE 60; RESP 16; O2SAT 93
[2022-03-09 09:34] VITALS: BP 107/57; PULSE 61; RESP 18; O2SAT 95
== END 2022-03-09 09:40 | disposition home or self-care (01) ==
PROVIDERS: PCP Family Medicine; Visit Provider Internal Medicine Gastroenterology
PROC: 0DJD8ZZ Inspection of Lower Intestinal Tract, Via Natural or Artificial Opening Endoscopic (ICD-10-PCS; CPT 45378; principal; 2022-03-09 10:00)
DX: Z12.11 Encounter for screening for malignant neoplasm of colon (principal)
CPT/HCPCS: 45378; J2704; J7120

== ENCOUNTER 2022-12-14 09:13 | Outpatient (CLI) | payer BC, SELFPAY ==
--- NOTE | ~2022-12-14 | CT_ITS ---
EXAMINATION: CT diagnostic chest wo con DATE: 12/14/2022 09:35 INDICATION: Lung nodule TECHNIQUE: Computed tomography (CT) of the chest was performed without intravenous contrast. The dose -length product (DLP) was 392.83 mGy-cm. Automated exposure control and iterative reconstruction tech [employer] were employed. COMPARISON: 12/15/2021, 12/12/2020, 04/13/2021 FINDINGS: There is a stable 7 mm groundglass nodule of the right lower lobe. No new pulmonary nodules are identified. There is mild atelectasis of the right middle lobe and lingula. No pleural effusion or pneumothorax. No pathologically enlarged thoracic lymph nodes are identified. The heart size is no rmal. There is mild thoracic spondylosis. IMPRESSION: 1. Stable 7 mm groundglass nodule of the right lower lobe. Follow-up low-dose CT of the chest in 12 m [facility] is recommended. Reviewed, dictated and finalized at location B. IMPRESSION: 1. Stable 7 mm groundglass nodule of the right lower lobe. Follow-up low-dose C T of the chest in 12 months is recommended.
== END 2022-12-14 09:14 | disposition home or self-care (01) ==
PROVIDERS: PCP Family Medicine; Visit Provider Nurse Practitioner Family
DX: R91.1 Solitary pulmonary nodule (principal)
CPT/HCPCS: 71250

== ENCOUNTER 2023-02-13 08:59 | Outpatient (CLI) | payer BC, SELFPAY ==
[2023-02-13 18:31] LABS: Hematocrit 49.3 % (42.0-52.0); Hemoglobin 15.8 g/dL (14.0-18.0); Mean Corpuscular Hemoglobin 29.3 pg (26-34); Mean Corpuscular Volume 91.5 fl (80-100); Mean Platelet Volume 10.6 fl (7.4-10.4); Platelet Count Result 194 k/mm3 (150-375); Red Blood Count 5.39 M/mm3 (4.6-6.20); Red Cell Distribution Width 12.8 % (11.5-14.5); White Blood Count 7.5 K/mm3 (4.5-10.0)
[2023-02-13 19:06] LABS: Alanine Aminotransferase 19 U/L (6-50); Albumin Level 4.4 g/dL (3.5-5.1); Alkaline Phosphatase 74 U/L (38-126); Anion Gap 7 mmol/L (8-16); Aspartate Amino Transferase 42 U/L (17-59); Bilirubin,Total 0.8 mg/dL (0.2-1.3); Blood Urea Nitrogen 20 mg/dL (9-20); Calcium 9.1 mg/dL (8.4-10.2); Carbon Dioxide 28 mmol/L (22-30); Chloride 106 mmol/L (98-107); Cholesterol 185 mg/dL (0-200); Estimated Glomerular Filt Rate > 60; Glucose 102 mg/dL (65-110); HDL Direct 34 mg/dL; Sodium 141 mmol/L (137-145); Triglycerides 83 mg/dL (<150)
[2023-02-13 19:18] LABS: LDL Cholesterol Direct 120 mg/dL
[2023-02-13 19:37] LABS: Prostate Specific Antigen 0.9 ng/mL (< OR = 4.0)
== END 2023-02-13 09:00 | disposition home or self-care (01) ==
PROVIDERS: PCP Nurse Practitioner Adult Health; Visit Provider Nurse Practitioner Adult Health
DX: Z12.5 Encounter for screening for malignant neoplasm of prostate (principal); Z13.9 Encounter for screening, unspecified
CPT/HCPCS: 36415; 80053; 80061; 84153; 85027; G0103

== ENCOUNTER 2023-03-18 12:48 | Outpatient (CLI) | payer BC, SELFPAY ==
--- NOTE | ~2023-03-18 | XR_ITS ---
EXAMINATION: XR elbow RT min 3V DATE: 03/18/2023 13:08 INDICATION: Right elbow pain. TECHNIQUE: 4 views of right elbow were obtained. COMPARISON: Radiographs 02/25/2018 FINDINGS: Bone alignment is normal. No fracture. Joint spaces are normal. No elbow joint effusion. IMPRESSION: 1. No arthritis. Reviewed, dictated and finalized at location E. TIPPING MACHINE TENDER IMPRESSION: 1. No arthritis.
== END 2023-03-18 12:49 | disposition home or self-care (01) ==
PROVIDERS: PCP Nurse Practitioner Adult Health; Visit Provider Orthopaedic Surgery
DX: M25.521 Pain in right elbow (principal)
CPT/HCPCS: 73080

== ENCOUNTER 2023-04-01 14:37 | Outpatient (CLI) | payer BC, SELFPAY ==
--- NOTE | ~2023-04-01 | MR_ITS ---
EXAMINATION: MR elbow RT wo/w con DATE: 04/01/2023 15:46 INDICATION: Localized swelling, mass or lump at the right elbow, also with tingling and numbness. TECHNIQUE: Magnetic resonance imaging (MRI) of the right elbow was performed without intravenous cont rast. Sequences included coronal, axial, and sagittal PD-weighted FS FSE and coronal, axial, and sagi ttal PD-weighted FSE. COMPARISON: None FINDINGS: Osseous/other: Normal alignment. Normal marrow signal with no marrow edema, fracture, osteochondral lesion or abnor mal marrow replacing process. Mild osteoarthritis at the right elbow. There is focal relative thicken ing of the fat at the antecubital fossa underlying the marker indicating the region of concern. No di screte lipoma or other abnormal masses or fluid collections identified. There is a line of subtle abraham ceptibility artifact along the skin surface thinning medially from the site of the marker. Correlate for prior trauma or surgery at this location. No abnormally enhancing lesions identified. Tendons: Triceps and brachialis tendons are normal. Mild tendinopathy without discrete tears at the radial ins ertion of the distal biceps brachii tendon and at the medial epicondylar origin of the common flexor tendon wad. The common extensor tendon wad is normal. Ligaments: The medial and lateral collateral ligament complexes are normal. Cubital tunnel: Cubital tunnel is unremarkable with normal signal and caliber of the ulnar nerve. Fluid: Physiologic amount of fluid the elbow joint. IMPRESSION: 1. Localized increased prominence of the subcutaneous fat but without discrete lipoma or other abnorm al masses or fluid collections at the antecubital fossa region of concern. 2. Mild tendinopathy without discrete tears at the distal biceps brachii tendon at the common flexor tendon wad. Reviewed, dictated and finalized at location A. ING AIDE IMPRESSION: 1. Localized increased prominence of the subcutaneous fat but without discrete lipoma or other abnormal masses or fluid collections at the antecubital fossa r egion of concern. 2. Mild tendinopathy without discrete tears at the distal biceps brachii tendon at the common flexor tendon wad.
== END 2023-04-01 14:38 ==
PROVIDERS: PCP Orthopaedic Surgery; Visit Provider Orthopaedic Surgery
DX: R22.31 Localized swelling, mass and lump, right upper limb (principal)
CPT/HCPCS: 73223; A9577

== ENCOUNTER 2023-05-30 01:03 | Day surgery (SDC) | payer BC, SELFPAY ==
[2023-05-17 12:44] VITALS: BMI 36.9
--- NOTE | 2023-05-17 12:51 | PC.NURSE ---
Report to the Outpatient Waiting Room, entrance under the green pavilion located off [facility], at time 1000 on date 05/30/23. Planned Procedure Time: 1200. Time changes happen often and if your time is changed the preop area will call you the afternoon before. - You and your visitor will be asked to self-screen and do not enter if you have any COVID symptoms. - A mask is optional within the hospital at this time. Patients may have clear liquids (water, carbonated beverages, clear teas, apple juice) until 3 hours prior to surgery with a maximum of 20 ounces. - No food from midnight until time of surgery Take the following medications with a SIP of water the morning of surgery: NONE DO NOT STOP ANY OF YOUR OTHER PRESCRIPTION MEDICATIONS PRIOR TO SURGERY ?EXCEPT THE FOLLOWING Medications to discontinue per physician: VITAMINS/SUPPLEMENTS Date to take last dose: 05/26/23 Please no make-up, nail costa rican, hairspray, perfume, deodorant, or body powder the day of surgery. No jewelry (including any body piercings) or valuables the day of surgery, leave them at home. Please take a shower or bath the night before, or the morning of, surgery with an antibacterial soap. Wear comfortable, loose fitting clothing. - Jewelry must be removed prior to entering the operating room. Rings and piercings that are not removed may be cut off. - The hospital will not accept responsibility for valuables. - Please leave all valuables, including medications, at home the day of surgery. If you are going home after surgery, a licensed gravel truck driver must drive you home. - NO public transportation without another adult if you receive anesthesia. - We recommend that an adult stay with you for 24 hours following discharge. - We also recommend that you do not drive, make important decision, drink alcoholic beverages, or take any drugs that were not prescribed by your health care provider for at least 24 hours after your discharge time. Follow any additional instructions given to you from your surgeon. If you or anyone in your household have experienced Covid symptoms in the past week, please notify your surgeon or the nurse liaison at the phone number below for possible testing. Telephone instructions given to PT - EBER MAE and asked if any additional questions and then verbalized understanding. Patient advised to call surgeon office or pre surgery nurse liaison [phone] if any additional questions.
[2023-05-30] VITALS (9 sets, daily range): BP systolic 109–126; BP diastolic 63–77; PULSE 55–71; RESP 13–18; TEMP 36.8; O2SAT 94–100
--- NOTE | 2023-05-30 09:32 | WPDHPUPDATE1 ---
History and Physical Update Update Date/Time: 05/30/23 09:32 History and Physical has been reviewed, including an updated exam of the patient. There are NO changes in the patient's condition. Risks, benefits, and alternatives have been discussed and questions answered. Patient agrees to proceed with procedure.
[2023-05-30] MEDS: LACTATED RINGERS 1,000 ML 30 ML IV CONT (10:32)
[2023-05-30] MEDS: KETOROLAC 15 MG/ML VIAL (*BKC) IV PUSH (10:33)
[2023-05-30] MEDS: ACETAMINOPHEN 500 MG TABLET 1000 MG PO (10:33)
--- NOTE | 2023-05-30 11:35 | WPDANESEPPF ---
Anes - Initial Pre Proc Eval Procedure: Operation Date: 05/30/23 12:00 Proposed Procedures p Excision of Right Elbow Lipoma, - Jj Westfall MD s Right Cubital Tunnel Release, - Jj Westfall MD s Right Ring Trigger Finger Release - Jj Westfall MD Date/Time: 05/30/23 11:35 Surgeon: Jj Westfall MD Pre Op Diagnosis: rt elbow lipoma, rt cub yakelin syndro, rt trig fing Patient Data Age: 53 Gender: M Height: 1.75 m Weight: 117 kg Last Vital Signs Temp 98.3 F 05/30/23 10:05 Pulse 62 05/30/23 10:05 BP 126/67 05/30/23 10:05 Pulse Ox 98 05/30/23 10:05 O2 Del Method Room Air 05/30/23 10:05 Allergies Allergy/AdvReac Type Severity Reaction Status Date / Time No Known Allergies Allergy Verified 05/30/23 09:55 Home Medications Medication Instructions Recorded Confirmed Type cholecalciferol (vitamin D3) 125 125 mcg PO DAILY 05/17/23 05/17/23 History mcg (5,000 unit) tablet (Vitamin D3) cyanocobalamin (vitamin B-12) 5,000 mcg PO DAILY 05/17/23 05/17/23 History 5,000 mcg capsule Patient hx anesthesia problems: none Family hx anesthesia problems: none Results Review: All pre-operative results and documents have been reviewed as part of the pre-operative evaluation. [facility] Past Medical History Medical History Acute bacterial sinusitis Acute recurrent sinusitis BMI 35.0-35.9,adult Carpal tunnel syndrome on left Chronic cough Cough (~05/2019) Mass of skin of right elbow Seasonal allergies Sleep apnea Trigger finger of right hand Surgical History Surgical History H/O umbilical hernia repair 04/17/21 History of repair of rotator cuff (~1992) History of tonsillectomy S/P scrotal varicocelectomy (~1991) On the left side x 2. 4/89 and also '93 Status post excision of lipoma (~05/23/18) Rt elbow Family History Family History Father Emphysema of lung Pulmonary fibrosis Social History Social History Smoking status: Never smoker Second hand tobacco smoke exposure: No Alcohol intake: current Drinks per week: 1 Alcohol use details: RARE Substance use: never Substance use type: does not use Lack of Transportation: No Lack of Food: Never True Current Housing: I Have Housing Concerned About Future Housing: No Difficulty Paying Gas/Electric Bills: No Difficulty Paying for Meds: No Currently Unemployed: No Education: Trade/Vocational Certificate Difficulty w/ Childcare or Family Care: No Living arrangements: with family Occupation/Education: occupation 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 Informed Consent: The patient's anesthetic plan and its attendant risks and benefits were discussed with the patient/family/POA. Questions were solicited and answers provided to the satisfaction of the patient/family/POA.
[2023-05-30] MEDS: ceFAZolin 2 GM/D5W 50 ML 2 GM/50 ML BAG IVPB (12:23)
[2023-05-30] MEDS: BUPivacaine HCL 0.5% 10 ML AMP 20 ML INFILTRATE (12:44)
--- NOTE | 2023-05-30 13:47 | W.PM.PROC2 ---
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 He has failed conservative treatment. The mass in the forearm causes problems at work where it gets caught on tight areas. Presents for operative treatment. Findings Right forearm mass consistent with suspected lipoma. Compression of the ulnar nerve at the cubital tunnel. Compression A1 janet on flexor tendon of the ring finger. Description of Procedure Patient identified in the preoperative holding. Informed consent given. Operative extremity marked. Patient received intravenous antibiotics. Patient brought to the operating room where underwent general anesthetic by anesthesia team. Positioned supine on operating room table. Time-out performed confirming the patient, site of the surgery and the plan. Right arm prepped and draped usual sterile surgical fashion using a ChloraPrep skin solution. Hand and arm exsanguinated and an arm tourniquet inflated to 250 mmHg. Local anesthetic with 0.5% Marcaine injected into the areas. There is a previous incision on the forearm overlying the mass. The mass measured approximately 4.5 x 3 cm. The incision was made once again through the previous scar with a 15 blade knife. Hemostasis controlled electrical blunt dissection was then carried around the mass which was subcutaneous and subfascial. Mass appeared consistent with lipoma. 1 vein was encountered proximally which was ligated with suture. Rest of the mass was then dissected free from the surrounding tissue and passed off as specimen. No other abnormal tissue was visible. Wound irrigated with saline subcuticular tissue closed with 3-0 Monocryl interrupted suture. Skin repaired with 4-0 nylon running suture. The cubital tunnel was then addressed. The elbow was flexed and the shoulder abducted and externally rotated. A curvilinear incision was made over the cubital tunnel the 15 blade knife. Hemostasis controlled electrocautery. Dissection carried down to the fascia overlying the cubital tunnel. This was noted to be quite restrictive at the elbow and just proximal to the elbow joint. This was dissected out at the proximal aspect where the was visualized. A blunt retractor was then used to protect the ulnar nerve and the cubital tunnel fascia was released overlying the ulnar nerve from proximal to distal. Good release was noted. Any bleeding points were controlled with bipolar cautery. Wound was irrigated. Elbow taken through range of motion in the ulnar nerve noted be stable. Subcutaneous tissue then repaired with 3-0 Monocryl interrupted suture and skin repaired with 3-0 nylon running suture. The ring finger was then addressed. Transverse incision made in the flexor palmar crease of the ring finger with a 15 blade knife. Dissection carried down and retractors placed to visualize the A1 janet Over the flexor tendon. elevator was then placed under the A1 janet this was released in line with the flexor tendon with a [place] blade. Mild thickening of the tendon noted, tendon otherwise intact. Wound irrigated and closed with 3-0 Monocryl interrupted subcuticular stitch and 3-0 nylon interrupted suture for the skin. Tourniquet released. Sterile dressing applied. The patient was then woken from anesthesia, extubated and taken to the recovery room in stable condition. All sponge, needle, instrument counts were correct at the end of the case. Estimated Blood Loss 20 Tourniquet Time Total Tourniquet Time: 50 Drains No Pac
== END 2023-05-30 15:46 | disposition home or self-care (01) ==
PROVIDERS: PCP Family Medicine; Visit Provider Orthopaedic Surgery
PROC: (CPT 26055; principal; 2023-05-30 12:00)
PROC: (CPT 64721; 2023-05-30 12:00)
PROC: (CPT 26055; 2023-05-30 12:00)
DX: M65.341 Trigger finger, right ring finger (principal); G56.21 Lesion of ulnar nerve, right upper limb; D17.21 Benign lipomatous neoplasm of skin and subcutaneous tissue of right arm; E66.9 Obesity, unspecified; Z68.38 Body mass index [BMI] 38.0-38.9, adult
CPT/HCPCS: 26055; 64718; 25071; 88304; A9270; J0690; J1100; J1885; J2250; J2405; J2704; J3010; J7120

== ENCOUNTER 2023-10-17 10:01 | Emergency (ER) | payer BC, SELFPAY ==
--- NOTE | ~2023-10-17 | XR_ITS ---
XR chest 2V Ordering provider: BALWINDER Bonilla History: 53 years Male with . PERSISTENT COUGH . Comparison: July 27, 2019 FINDINGS: MEDIASTINUM: The cardiac silhouette is not enlarged. LUNGS: No infiltrates, effusions or pneumothorax. OTHER: No free air under the diaphragm. Degenerative changes of the spine. IMPRESSION: No acute cardiopulmonary pathology. Reviewed, dictated and finalized at location A.
[2023-10-17 10:08] VITALS: BP 129/71; PULSE 71; RESP 20; TEMP 36.6; O2SAT 100
--- NOTE | 2023-10-17 10:23 | ED.URI ---
HPI - URI/Sore Throat General Chief Complaint: Upper Respiratory Infection Stated Complaint: Chest Cold History of Present Illness HPI Narrative: Pt is a 53 y/o male, PMHx of chronic sinusitis, presents to with persistent URI symptoms, nasal congestion with purulent discharge, as well as, productive cough; onset of symptoms 1 month ago. He was evaluated by his PCP one week after symptom onset and completed Augmentin/Prednisone. Two weeks ago, he went to after attempting to FU with his PCP without available appointments and notes he was given Doxycycline and prednisone again for symptom relief, in addition to Cheratussin. He continues to have symptoms despite completing oral abx, productive spasmodic cough, nasal discharge that is thick and yellow. He has taken Mucinex and Robitussin OTC additionally without relief. He denies fevers at any times since his symptoms began. He has no CP or SOB, no orthopnea or lower extremity edema. He has no other associated symptoms and he denies additional modifying factors. He does not smoke. Related Data Allergies Allergy/AdvReac Type Severity Reaction Status Date / Time No Known Allergies Allergy Verified 10/17/23 10:13 Review of Systems Constitutional: Comments: refer to HPI ENT: Comments: refer to HPI Respiratory: Comments: refer to HPI [facility] Past Medical History Medical History Acute bacterial sinusitis Acute recurrent sinusitis BMI 35.0-35.9,adult Carpal tunnel syndrome on left Chronic cough Cough (~05/2019) Mass of skin of right elbow Seasonal allergies Sleep apnea Trigger finger of right hand Surgical History Surgical History H/O umbilical hernia repair 04/17/21 History of repair of rotator cuff (~1992) History of tonsillectomy S/P scrotal varicocelectomy (~1991) On the left side x 2. and also '93 Status post excision of lipoma (~05/23/18) Rt elbow Family History Family History Father Emphysema of lung Pulmonary fibrosis Social History Social History Smoking status: Never smoker Second hand tobacco smoke exposure: No Alcohol intake: current Drinks per week: 1 Alcohol use details: RARE Substance use: never Substance use type: does not use Lack of Transportation: No Lack of Food: Never True Current Housing: I Have Housing Concerned About Future Housing: No Difficulty Paying Gas/Electric Bills: No Difficulty Paying for Meds: No Currently Unemployed: No Education: Trade/Vocational Certificate Difficulty w/ Childcare or Family Care: No Living arrangements: with family Occupation/Education: occupation 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 Gender identity (if verbalized by the patient): Male Spiritual care concerns: No Exam Const: General: healthy appearing and no acute distress Nutritional Appearance: obese Limitations: no limitations HENMT: Head: normal to inspection Ears: external ears normal and TM abnormal (retracted, otherwise translucent without effusion) Face/Nose/Sinus: Normal external nose present Face and sinus: normal facial exam and sinuses nontender Mouth: Yes Normal oral and palatal mucosa present Teeth and gingiva: dentition normal Throat: uvula midline Other: pt has erythematous horizontal streaking, no exudate, pharyngeal injection otherwise present No trismus Eyes: Conjunctivae: conjunctivae normal Pupils: Equal, round and reactive pupils present EOM: EOMs intact bilaterally Neck: Neck: normal visual inspection, no lymphadenopathy and no meningeal signs Chest: Chest palpation & inspection: normal inspection of the chest and abnormal inspection of the chest Resp: Effort & Inspection: normal respiratory eff
== END 2023-10-17 10:57 | disposition home or self-care (01) ==
PROVIDERS: Emergency Provider Nurse Practitioner Family; PCP Family Medicine
DX: J32.1 Chronic frontal sinusitis (principal); J30.2 Other seasonal allergic rhinitis
CPT/HCPCS: 71046; 99213; G0463

== ENCOUNTER 2023-10-20 17:58 | Emergency (ER) | payer BC, SELFPAY ==
[2023-10-20 18:03] VITALS: BP 143/71; PULSE 84; RESP 18; TEMP 37; O2SAT 98
--- NOTE | 2023-10-20 18:18 | ED.EYEPROB ---
HPI - Eye Problem General Chief complaint: Eye Problems Stated complaint: Eye Problem History of Present Illness HPI Narrative: Patient states he started with itchiness and drainage to his right eye patient stays is eyes itching have had drainage from. Related Data Home Medications Medication Instructions Recorded Confirmed cetirizine 10 mg tablet 10 mg PO DAILY 10/20/23 10/20/23 fluticasone propionate 50 2 spray intranasal DAILY 10/20/23 10/20/23 mcg/actuation nasal spray,suspension Allergies Allergy/AdvReac Type Severity Reaction Status Date / Time No Known Allergies Allergy Verified 10/20/23 18:16 Review of Systems Review of Systems: CONSTITUTIONAL: Denies fever, chills, or sweats. EYES: Denies visual changes, redness, or discharge. ENT: Denies rhinorrhea, congestion, sore throat, or otalgia. CARDIOVASCULAR: Denies chest pain, palpitations, or edema. RESPIRATORY: Denies cough or dyspnea. GASTROINTESTINAL: Denies abdominal pain, nausea, vomiting, or diarrhea. GENITOURINARY: Denies dysuria or hematuria. SKIN: Denies rash or itching. MUSCULOSKELETAL: Denies back pain, joint pain, or myalgia. NEUROLOGIC: Denies headache, numbness, or weakness. PSYCHIATRIC: Denies anxiety or depression. [facility] Past Medical History Medical History Acute bacterial sinusitis Acute recurrent sinusitis BMI 35.0-35.9,adult Carpal tunnel syndrome on left Chronic cough Cough (~05/2019) Mass of skin of right elbow Seasonal allergies Sleep apnea Trigger finger of right hand Surgical History Surgical History H/O umbilical hernia repair 04/17/21 History of repair of rotator cuff (~1992) History of tonsillectomy S/P scrotal varicocelectomy (~1991) On the left side x 2. and also '93 Status post excision of lipoma (~05/23/18) Rt elbow Family History Family History Father Emphysema of lung Pulmonary fibrosis Social History Social History Smoking status: Never smoker Second hand tobacco smoke exposure: No Alcohol intake: current Drinks per week: 1 Alcohol use details: RARE Substance use: never Substance use type: does not use Lack of Transportation: No Lack of Food: Never True Current Housing: I Have Housing Concerned About Future Housing: No Difficulty Paying Gas/Electric Bills: No Difficulty Paying for Meds: No Currently Unemployed: No Education: Trade/Vocational Certificate Difficulty w/ Childcare or Family Care: No Living arrangements: with family Occupation/Education: occupation 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 There is no relevant family history pertinent to the presenting complaint Exam Narrative: GENERAL: Well-appearing, well-nourished, and in no acute distress. HEAD: Normocephalic, atraumatic. EYES: PERRLA and EOMI. ENT: Nares clear, no rhinorrhea or epistaxis. Mucous membranes moist. NECK: Supple. CHEST: Clear to auscultation. No respiratory distress. HEART: Regular rate and rhythm. No murmur heard. Normal peripheral pulses. ABDOMEN: Soft, nontender, nondistended, normal active bowel sounds. EXTREMITIES: Normal range of motion. No edema. SKIN: Warm, dry, no rash. NEURO: No focal deficits. Alert and oriented x3. Niyah Coma Scale Eye Opening: Spontaneous 4 Niyah Coma Scale Motor: Obeys Commands 6 Niyah Coma Scale Verbal: Oriented 5 [place] Coma Scale Total 15 Eyes: Conjunctivae: conjunctival abnormality bilateral conjunctival injection Course Course Level of Care: Express Care Visit Vital Signs
== END 2023-10-20 18:23 | disposition home or self-care (01) ==
PROVIDERS: Emergency Provider Nurse Practitioner Family; PCP Family Medicine
DX: H10.9 Unspecified conjunctivitis (principal)
CPT/HCPCS: 99213; G0463

== ENCOUNTER 2023-11-20 14:31 | Outpatient (CLI) | payer BC, SELFPAY ==
--- NOTE | 2023-11-29 13:13 | WPDPFTINT ---
PFT Procedure Performed PFT Procedure Performed Plethysmography (Lung Vol) Diffusing Cap (DLCO) Flow Vol Loop Spirometry w/o Bronchodil PFT Interpretation DOS: 11/20/2023 REQUESTING: KAMRON Alcaraz REASON FOR TESTING: cough PULMONARY FUNCTION TESTS Results are reliable and reproducible. Repeatability of spirometry FEV1 maneuver pre and post bronchodilator is Grade A. Spirometry: The FEV1 is 3.58 L, 96%, normal. The FVC is 4.53 L, 96%, normal. The FEV1/FVC ratio is 79%, normal. Lung volumes: The total lung capacity is 5.96 L, 88%, normal. The residual volume is 1.43 L, 71%, normal. The RV/TLC is 24%, normal. Airway resistance is normal. Diffusion: DLCO is 26.7, 90%, normal. The DLCO/VA is 4.40, 97%, normal. Flow volume loop: The flow volume loop is unremarkable. IMPRESSION: This study shows normal spirometry, normal lung volumes and normal diffusion. No bronchodilator was administered. Parvin Díaz MD
== END 2023-11-20 14:32 | disposition home or self-care (01) ==
PROVIDERS: PCP Nurse Practitioner Adult Health; Visit Provider Nurse Practitioner Adult Health
DX: R05.9 Cough, unspecified (principal)
CPT/HCPCS: 94375; 94726; 94729

== ENCOUNTER 2024-02-20 07:14 | Outpatient (CLI) | payer BC, SELFPAY ==
[2024-02-20 18:50] LABS: Hematocrit 49.2 % (42.0-52.0); Hemoglobin 15.3 g/dL (14.0-18.0); Mean Corpuscular HGB Conc 31.1 g/dl (32-36); Mean Corpuscular Hemoglobin 28.8 pg (26-34); Mean Corpuscular Volume 92.5 fl (80-100); Platelet Count Result 205 k/mm3 (150-375); Red Blood Count 5.32 M/mm3 (4.6-6.20); White Blood Count 8.9 K/mm3 (4.5-10.0)
[2024-02-20 19:35] LABS: Alanine Aminotransferase 35 U/L (6-50); Albumin Level 4.2 g/dL (3.5-5.1); Alkaline Phosphatase 90 U/L (38-126); Anion Gap 8 mmol/L (4-12); Aspartate Amino Transferase 60 U/L (17-59); Bilirubin,Total 0.4 mg/dL (0.2-1.3); Blood Urea Nitrogen 22 mg/dL (9-20); Calcium 9.1 mg/dL (8.4-10.2); Carbon Dioxide 25 mmol/L (22-30); Chloride 106 mmol/L (98-107); Cholesterol 168 mg/dL (0-200); Estimated Glomerular Filt Rate > 60; Glucose 92 mg/dL (65-110); HDL Direct 36 mg/dL; Potassium 3.7 mmol/L (3.4-5.0); Sodium 139 mmol/L (137-145); Triglycerides 172 mg/dL (<150)
[2024-02-20 19:46] LABS: LDL Cholesterol Direct 96 mg/dL
== END 2024-02-20 07:15 | disposition home or self-care (01) ==
LOC: ANHBWCLAB 07:15
PROVIDERS: PCP Nurse Practitioner Adult Health; Visit Provider Nurse Practitioner Adult Health
DX: Z12.5 Encounter for screening for malignant neoplasm of prostate (principal); Z13.220 Encounter for screening for lipoid disorders; Z13.9 Encounter for screening, unspecified
CPT/HCPCS: 36415; 80053; 80061; 84153; 84443; 85027; G0103

== ENCOUNTER 2024-06-13 19:11 | Emergency (ER) | payer OTHER, SELFPAY ==
--- OUTSIDE RECORDS SUMMARY | 2024-06-13 19:13 | XMS_ITS | Clinical Summary ---
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 Gender Identity Not on file Sexual Orientation Not on file Plan of Treatment Health Maintenance Due Date Last Done Comments Colorectal Cancer Screening Colonoscopy (10 Years) 1971 Annual Physical 1974 Hepatitis C 1989 DTaP, Tdap and Td Vaccines ( 1 - Tdap) 1990 Hepatitis B Vaccines (1 of 3 - 19+ 3-dose series) 1990 Zoster Vaccines (1 of 2) 2021 COVID-19 Vaccine ( - 2023-2 5 season) 2023 Influenza Adult (#1) 2024 Meningococcal B Vaccine Aged Out No l onger eligible based on patient's age to complete this topic Meningococcal Vaccine Aged Out No katy margaret eligible based on patient's age to complete this topic Pneumococcal Vaccine: Pediat rics (0 to 5 Years) and At-Risk Patients (6 to 64 Years) Aged Out No longer eligible b ased on patient's age to complete this topic RSV Immunizations Under 20 Months Aged Out No longer eligible based on patient's age to complete this topic
[2024-06-13 19:17] VITALS: BP 139/65; PULSE 82; RESP 16; TEMP 36.9; O2SAT 98
--- NOTE | 2024-06-13 19:50 | ED.GENADULT ---
HPI - General Adult General Chief complaint: Upper Respiratory Infection Stated complaint: flu exp,cough,sinus issue,[place],achy Source: patient Mode of arrival: ambulatory Limitations: no limitations History of Present Illness HPI narrative: Patient presents for evaluation of sick symptoms for last 24 hours. Symptoms include headache, cough, generalized body aches, sinus congestion, postnasal drainage and diarrhea. He denies any nausea and vomiting. His son and both have influenza. He does not smoke. He took mucinex and cough drops for his symptoms. Related Data Allergies Allergy/AdvReac Type Severity Reaction Status Date / Time No Known Allergies Allergy Verified 06/13/24 19:20 Review of Systems Review of Systems: CONSTITUTIONAL: Denies fever, chills, or sweats. EYES: Denies visual changes, redness, or discharge. ENT: Reports sinus congestion postnasal drainage CARDIOVASCULAR: Denies chest pain, palpitations, or edema. RESPIRATORY:Reports cough, GASTROINTESTINAL: Reports diarrhea. Denies abdominal pain, nausea, vomiting GENITOURINARY: Denies dysuria or hematuria. SKIN: Denies rash or itching. MUSCULOSKELETAL: Reports generalized body aches NEUROLOGIC: Reports headache. Denies numbness, dizziness, or weakness. PSYCHIATRIC: Denies anxiety or depression. [facility] Past Medical History Medical History Mass of skin of right elbow Chronic cough Acute recurrent sinusitis BMI 35.0-35.9,adult Seasonal allergies Acute bacterial sinusitis Sleep apnea Cough (~05/2019) Carpal tunnel syndrome on left Trigger finger of right hand Surgical History Surgical History H/O umbilical hernia repair 04/17/21 Status post excision of lipoma (~05/23/18) Rt elbow S/P scrotal varicocelectomy (~1991) On the left side x 2. and also '93 History of tonsillectomy History of repair of rotator cuff (~1992) Family History Family History Father Emphysema of lung Pulmonary fibrosis Social History Social History Smoking status: Never smoker Second hand tobacco smoke exposure: No Alcohol intake: current Drinks per week: 1 Alcohol use details: RARE Substance use: never Substance use type: does not use Lack of Transportation: No Lack of Food: Never True Current Housing: I Have Housing Concerned About Future Housing: No Difficulty Paying Gas/Electric Bills: No Difficulty Paying for Meds: No Currently Unemployed: No Education: Trade/Vocational Certificate Difficulty w/ Childcare or Family Care: No Living arrangements: with family Occupation/Education: occupation 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 HEAD: Normocephalic, atraumatic. EYES: PERRLA and EOMI. ENT: Nares clear, no rhinorrhea or epistaxis. Mucous membranes moist. Oropharynx without tonsillar hypertrophy exudate or other lesions. Bilateral TMs pearly burgess nonbulging NECK: Supple. No adenopathy or masses. No carotid bruits or JVD CHEST: Cough present on exam. Clear to auscultation. No respiratory distress. No wheezes rales or rhonchi HEART: Regular rate and rhythm. No murmur heard. Normal peripheral pulses. ABDOMEN: Soft, nontender, nondistended, normal active bowel sounds. EXTREMITIES: Normal range of motion. No edema. SKIN: Warm, dry, no rash. NEURO: No focal deficits. Alert and oriented x3. PSYCH: Normal mood and affect. Course Course Emergency Course: This is a 54-year-old male who presented for evaluation of sick symptoms after influenza exposure. COVID negative. Influenza positive. Will treat with Tamiflu. Increase hydration. [id number] agents for symptom management. Follow up with primary provider. Go to the ER for worsening symptoms. Patient in agreement with plan of care. Level of Care: Express Care Visit Vital Signs Vital signs: Vital Signs Temperature 36.9 C 06/13/24 19:17 Pulse Rate 82 06/13/24 19:17 Respiratory Rate 16 06/13/24 19:17 Blood Pressure 139/65 06/13/24 19:17 Pulse Oximetry 98 06/13/24 19:17 Oxygen Delivery Room Air 06/13/24 19:17 Temperature 36.9 C 06/13/24 19:17 Pulse Rate 82 06/13/24 19:17 Respiratory Rate 16 06/13/24 19:17 Blood Pressure 139/65 06/13/24 19:17 Pulse Oximetry 98 06/13/24 19:17 Oxygen Delivery Room Air 06/13/24 19:17 Medical Decision Making Vital Signs Vital Signs: Vital Signs Temperature 36.9 C 06/13/24 19:17 Pulse Rate 82 06/13/24 19:17 Respiratory Rate 16 06/13/24 19:17 Blood Pressure 139/65 06/13/24 19:17 Pulse Oximetry 98 06/13/24 19:17 Oxygen Delivery Room Air 06/13/24 19:17 Temperature 36.9 C 06/13/24 19:17 Pulse Rate 82 06/13/24 19:17 Respiratory Rate 16 06/13/24 19:17 Blood Pressure 139/65 06/13/24 19:17 Pulse Oximetry 98 06/13/24 19:17 Oxygen Delivery Room Air 06/13/24 19:17 Discharge Plan Discharge Clinical Impression: Influenza A Patient Disposition: Home, Self-Care Condition: Stable Instructions: Antibiotic Form, Influenza (ED) Patient Language: Polish Prescriptions: New oseltamivir [Tamiflu] 75 mg capsule 75 mg PO Q12H 5 Days Qty: 10 0RF Follow-up/Referrals: Julita Cooley APRN [Primary Care Provider] - Time of Disposition: 19:40
[2024-06-13 19:54] LABS: EDCOVIDSCREEN Negative (Negative); EDINFLUASCREEN Positive (Negative); EDINFLUBSCREEN Negative (Negative)
== END 2024-06-13 19:45 | disposition home or self-care (01) ==
PROVIDERS: Emergency Provider Nurse Practitioner; PCP Nurse Practitioner Adult Health
DX: J10.1 Influenza due to other identified influenza virus with other respiratory manifestations (principal); Z20.822 Contact with and (suspected) exposure to COVID-19
CPT/HCPCS: 87426; 87804; 99213; G0463

== ENCOUNTER 2024-07-06 12:11 | Outpatient (CLI) | payer OTHER, SELFPAY ==
--- NOTE | ~2024-07-06 | XR_ITS ---
Left Hand Technique: PA, oblique, and lateral views were obtained. Clinical History: Pain Findings: No acute fracture or dislocation is seen. Osseous alignment is anatomic. Joint spaces are p reserved. Soft tissues are unremarkable. Impression: Unremarkable left hand. Reviewed, dictated and finalized at location M. Impression: Unremarkable left hand.
--- OUTSIDE RECORDS SUMMARY | 2024-07-06 14:05 | XMS_ITS | Continuity of Care Document ---
Author Organization [facility] Address [address] [place] [phone] Phone Care Team Providers Care Evp Managing Director Name Role Phone Tree Ortega MD, MD Unavailable Unavailable Allergies, Adverse Reactions, Alerts Substance Reaction Status Criticality No Known allergies Procedures Procedure Date OFFICE/OUTPATIENT VISIT, EST OFFICE/OUTPATIENT VISIT, [facility] Advance Directives Directive Yes / No Effective Date File Name Resuscitation Not Answered N/A N/A Life Support Not Answered N/A N/A Intubation Not Answered N/A N/A Antibiotics Not Answered N/A N/A IV Fluid Support Not Answered N/A N/A Tube Feed Not Answered N/A N/A Other Directive N/A N/A WARNING:The information contained in this section is historical and is provided for information only and does not constitute a legal document or any assurance that the information is still accurate. Please verify the information with the felder of the legal document before using it for clinical purposes. Encounters Encounter Description Practice Location Reason(s) For Visit Diagnoses Date Provider Providers Copied on Encounter OFFICE/OUTPA TIENT VISIT, [facility] [[email or web address], [address] [place] [address], [id number] tel:[phone] ABBIE Larose floppy lids (chief complaint) Other disorders of eyelid 3 Shannon Leavitt. [facility], [address] [place] [address], [id number]. tel:[phone] Referring Provider: Yuan Roach, [address] [facility], [place], [address]. tel:[phone] OFFICE/OUTPA TIENT VISIT, [facility], [address], [place], [id number] tel:[phone] ABBIE [place] Possible abrasion (chief complaint) Conjunctivitis, unspecifiedOthe r disorders of eyelid 3 Jose Bolden. [address] [facility], [place], [address], [place]. tel:[phone] Family History Family Member Type Diagnosis Age At Onset Grandmother (p) Problem (finding) degenerative disorde r of macula Payers Payer name Insurance type Covered constitution party ID Authoriza tion(s) [facility] [id number] Social History Type Description Quantity Date Captured Comments Alcohol Use Details occasional w ine/beer rarely Caffeine Use Details Unknown Tobacco Use Status No Information Smoking Status Never smoker Sex Male Chief Complaint And Reason For Visit From encounter dated '10/21/2012 15:50'. floppy lids (chief complaint) Reason For Referral Reason For Referral No Information History Of Present Illness Encounter Date Complaint History Of Prese nt Illness No Information Functional Status Date Functional Assessmen t No Information Instructions Date Instruction Additional Infor carla - Patient to be seen by Dr. Kate us Related to Other disorders of eyelid Other disorders of e yelid OU Condition: established, stable. - Educational materials provided: Discussed sleeping patterns, and sleep apnea. Explained patient doesn't have all the signs of floppy eyelids, demonstrated lids spring back into position and outer corner stays in position. But patient certainly has a sleep disturbance. Does it bother patient enough to pursue the cause. The risk isn't to general health, but could make patient drowsy at work or when driving. Would recommend Dr. Shelton Das, he is a neurologist who deals with sleep disorders. Dr. Ortega will send a letter to Dr. Das, and have his office call patient to set up appointment. Related to Other disorders of eyelid Other disorders of e yelid OU Condition: new problem addtl w/u needed. 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 Rec tape OD shut when sleeping. Rec consult with specialist for lid eval. Pt reports anecdotal sleep apnea reported by . Also, rec pt see PCP about possible sleep apnea. Related to Other disorders of eyelid Conjunctivitis, unsp ecified OD Condition: new problem addtl w/u needed. - Educational materials provided: Discussed diagnosis in detail with patient. Discussed treatment options with patient. Start Lotemax OD QHS (sample given). Pt can use a.t as needed. Related to Conjunctivitis, unspecified Follow up - Return i n Next available weeks with Tree Ortega MD for lid evaluation. Related to Other disorders of eyelid Assessments Type Assessment Date No Information Patient Care Teams Name Effective Dates (start - stop) Status Members No Information
--- OUTSIDE RECORDS SUMMARY | 2024-07-06 14:05 | XMS_ITS | Clinical Summary ---
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
== END 2024-07-06 12:12 | disposition home or self-care (01) ==
LOC: ANHBWCIMG 12:12
PROVIDERS: PCP Nurse Practitioner Adult Health; Visit Provider Orthopaedic Surgery
DX: M79.642 Pain in left hand (principal)
CPT/HCPCS: 73130

== ENCOUNTER 2024-07-25 16:12 | Emergency (ER) | payer OTHER, SELFPAY ==
--- NOTE | ~2024-07-25 | XR_ITS ---
CHEST RADIOGRAPH, PA AND LATERAL CLINICAL HISTORY: left post mid back pain and cough x1 week . COMPARISON: 10/17/2023 TECHNIQUE: PA and lateral views of the chest. FINDINGS The cardiomediastinal silhouette is unremarkable. The lungs are clear. Visualized osseous structures and soft tissues are unremarkable. IMPRESSION: No focal infiltrate or effusion. Reviewed, dictated and finalized at location A.
--- OUTSIDE RECORDS SUMMARY | 2024-07-25 16:14 | XMS_ITS | Continuity of Care Document ---
Author Organization [facility] Address [address] [place] [phone] Phone Care Team Providers Care Consulting Actuary Name Role Phone Tree Ortega MD, MD Unavailable Unavailable Allergies, Adverse Reactions, Alerts Substance Reaction Status Criticality No Known allergies Procedures Procedure Date OFFICE/OUTPATIENT VISIT, EST OFFICE/OUTPATIENT VISIT, [facility] Advance Directives Directive Yes / No Effective [...] Providers Copied on Encounter OFFICE/OUTPA TIENT VISIT, [facility], [address] [place] [address], [id number] tel:[phone] ABBIE Larose floppy lids (chief complaint) Other disorders of eyelid 3 Shannon Leavitt. [facility], [address] [place] [address], [id number]. tel:[phone] Referring Provider: Yuan Roach, [address] [facility], [place], [address]. tel:[phone] OFFICE/OUTPA TIENT VISIT, NEW [facility], [address], [place], [id number] tel:[phone] ABBIE T[place] Possible abrasion (chief complaint) Conjunctivitis, unspecifiedOthe r disorders of eyelid 3 Jose Bolden. [address] [facility], [place], [address], [place]. tel:[phone] Family History Family Member Type Diagnosis Age At Onset Grandmother (p) Problem (finding) degenerative disorde r of macula Payers Payer name Insurance type Covered green party ID Authoriza tion(s) [facility] [id number] Social History Type Description Quantity Date Captured [...]
--- OUTSIDE RECORDS SUMMARY | 2024-07-25 16:14 | XMS_ITS | Clinical Summary ---
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
[2024-07-25 16:16] VITALS: BP 144/67; PULSE 73; RESP 16; TEMP 36.6; O2SAT 98
--- NOTE | 2024-07-25 17:21 | ED_ITS ---
HPI - URI/Sore Throat General Chief Complaint: Back Pain/Injury Stated Complaint: Back Pain/Left Side/Cough Time Seen by Provider: 07/25/24 17:02 Source: patient and RN notes reviewed Mode of arrival: ambulatory Limitations: no limitations History of Present Illness HPI Narrative: Patient presents today complaining of left mid back pain the increases with coughing and movement. Symptoms have been present for 1 week. Cough has been present for 10 days. Associated symptoms also include rhinorrhea. With severe coughing episodes pain radiates laterally. Currently rates pain 5/10 and has tried no [id number] interventions prior to arrival. Denies shortness of breath. History of pneumonia in the past. Related Data Home Medications ?Medication ?Instructions ?Recorded ?Confirmed ?Last Taken ?Type No Home Medications 07/25/24 07/25/24 Unknown History Allergies Allergy/AdvReac Type Severity Reaction Status Date / Time No Known Allergies Allergy Verified 07/25/24 16:20 Review of Systems Review of Systems: CONSTITUTIONAL: Denies body aches, fever, chills, or sweats. EYES: Denies visual changes, redness, or discharge. ENT: Denies rhinorrhea, congestion, sore throat, or otalgia. CARDIOVASCULAR: Denies chest pain, palpitations, or edema. RESPIRATORY: + cough, rib pain. GASTROINTESTINAL: Denies abdominal pain, nausea, vomiting, or diarrhea. GENITOURINARY: Denies dysuria or hematuria. SKIN: Denies rash, itching, or wounds. MUSCULOSKELETAL: Denies joint pain, or myalgia.+ back pain NEUROLOGIC: Denies headache, numbness, tingling, or weakness. PSYCH: Denies depression or anxiety. [facility] Past Medical History Medical History Cubital tunnel syndrome on left Trigger finger of left hand Mass of skin of right elbow Chronic cough Acute recurrent sinusitis BMI 35.0-35.9,adult Seasonal allergies Acute bacterial sinusitis Sleep apnea Cough (~05/2019) Carpal tunnel syndrome on left Trigger finger of right hand Surgical History Surgical History H/O umbilical hernia repair 04/17/21 Status post excision of lipoma (~05/23/18) Rt elbow S/P scrotal varicocelectomy (~1991) On the left side x 2. and also '93 History of tonsillectomy History of repair of rotator cuff (~1992) Family History Family History Father Emphysema of lung Pulmonary fibrosis Social History Social History Smoking status: Never smoker Second hand tobacco smoke exposure: No Alcohol intake: current Drinks per week: 1 Alcohol use details: RARE Substance use: never Substance use type: does not use Lack of Transportation: No Lack of Food: Never True Current Housing: I Have Housing Concerned About Future Housing: No Difficulty Paying Gas/Electric Bills: No Difficulty Paying for Meds: No Currently Unemployed: No Education: Trade/Vocational Certificate Difficulty w/ Childcare or Family Care: No Living arrangements: with family Occupation/Education: occupation 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 Please see nursing chart for further information. There is no relevant family history pertinent to the presenting complaint Exam Narrative: GENERAL: Well-appearing, well-nourished, and in no acute distress. HEAD: Normocephalic, atraumatic. EYES: EOMI. No redness or drainage. Conjunctivae normal. ENT: Mucous membranes pink and moist. Nares clear. No rhinorrhea. TMs normal bilaterally. Throat normal. Uvula midline. NECK: Normal AROM. CHEST: No respiratory distress. Clear to auscultation. Point tenderness to small area in the left mid back. No crepitus, edema, ecchymosis or step-off noted. HEART: Regular rate and rhythm. No murmur appreciated. EXTREMITIES: Normal range of motion. No edema. SKIN: Warm, dry, no rash. Capillary refill normal. Normal skin turgor. NEURO: No focal deficits. Alert and oriented x3. Gait steady. PSYCH: Normal affect. No signs of depression or anxiety. Course Course Level of Care: Express Care Visit Vital Signs Vital signs: Vital Signs Temperature 97.9 F 07/25/24 16:16 Pulse Rate 73 07/25/24 16:16 Respiratory Rate 16 07/25/24 16:16 Blood Pressure 144/67 H 07/25/24 16:16 Pulse Oximetry 98 07/25/24 16:16 Oxygen Delivery Room Air 07/25/24 16:16 Temperature 97.9 F 07/25/24 16:16 Pulse Rate 73 07/25/24 16:16 Respiratory Rate 16 07/25/24 16:16 Blood Pressure 144/67 H 07/25/24 16:16 Pulse Oximetry 98 07/25/24 16:16 Oxygen Delivery Room Air 07/25/24 16:16 Reviewed MDM - URI/Sore Throat MDM Narrative Medical decision making narrative: Chest x-ray negative. Symptoms likely due to chest wall strain. Recommend NSAID use and heating pad. Also reminded patient that he needed to take deep breaths to help prevent pneumonia. Patient agrees with plan. Anticipatory guidance given. Differential Diagnosis Differential diagnosis: Likely upper respiratory infection, viral infection and other (Chest wall strain, rib fracture, pneumonia) Imaging Data Radiologist's impression: ITS Impressions Chest X-Ray 07/25/24 17:33 IMPRESSION: No focal infiltrate or effusion. Critical Care Time Critical Care Time Critical Care Time: No Discharge Plan Discharge Clinical Impression: Chest wall muscle strain Qualifiers: Encounter type: initial encounter Qualified Code(s): S29.011A - Strain of muscle and tendon of front wall of thorax, initial encounter Patient Disposition: Home, Self-Care Condition: Stable Instructions: Muscle Strain (DC) Additional Instructions: Your chest x-ray is negative today. Your pain is likely due to a strain in your muscles related to coughing. Please taking anti-inflammatories such as Aleve or ibuprofen. Make sure your taking deep breaths to help decrease your possibility of developing pneumonia. Follow-up with your PCP if you develop any worsening symptoms such as fever or shortness of breath. Your blood pressure was elevated above 120/80 today at Urgent Care. This puts you above the threshold for follow up. Please schedule a followup visit with your personal physician as soon as possible, for further evaluation and treatment. Even blood pressure exceeding 120/80 may indicate pre-hypertension. Patient Language: Tamazight Prescriptions: No Action No Home Medications Follow-up/Referrals: Julita Cooley APRN [Primary Care Provider] - Time of Disposition: 17:44
== END 2024-07-25 17:47 | disposition home or self-care (01) ==
PROVIDERS: Emergency Provider Nurse Practitioner; PCP Nurse Practitioner Adult Health
DX: S29.011A Strain of muscle and tendon of front wall of thorax, initial encounter (principal); X58.XXXA Exposure to other specified factors, initial encounter
CPT/HCPCS: 71046; 99213; G0463

== ENCOUNTER 2024-11-14 15:35 | Emergency (ER) | payer OTHER, SELFPAY ==
--- OUTSIDE RECORDS SUMMARY | 2024-11-14 15:37 | XMS_ITS | Patient Health Record ---
Author Organization [facility] Address [address] [place] [address] Care Team Providers Care Cotton Dispatcher Name Role Phone TYLER LOPEZ Unavailable [phone] Tyler Lopez Unavailable Unavailable Reason For Referral No Information Plan Of Treatment No Information Insurance Providers Payer Name Payer Address Payer Phone Subscriber Number Group Number Insured Name Patient Relationship to Insured Coverage Start Date Coverage End Date [facility] [address] [place] [address] [id number] EBER MAE Self - patient is the insured
--- OUTSIDE RECORDS SUMMARY | 2024-11-14 15:37 | XMS_ITS | Continuity of Care Document ---
Author Organization [facility] Address [address] [place] [phone] Phone Care Team Providers Care Outpatient Scheduler Name Role Phone Tree Ortega MD, MD Unavailable Unavailable Allergies, Adverse Reactions, Alerts Substance Reaction Status Criticality No Known allergies Procedures Procedure Date OFFICE/OUTPATIENT VISIT, EST OFFICE/OUTPATIENT VISIT, [facility] Advance Directives Directive Yes / [...] Providers Copied on Encounter OFFICE/OUTPA TIENT VISIT, [facility], [address] [place] [address], [id number] tel:[phone] [facility] Other disorders of eyelid 3 Shannon Leavitt. [facility], [address] [place] [address], [id number]. tel:[phone] Referring Provider: Yuan Roach, [address] [facility], [place], [address]. tel:[phone] OFFICE/OUTPA TIENT VISIT, [facility], [address] [place], [place], [id number] tel:[phone] ABBIE [place] Conjunctivitis, unspecifiedOthe r disorders of eyelid 3 Jose Bolden. [address], [place], [address], [place]. tel:[phone] Family History Family Member Type Diagnosis Age At Onset Grandmother (p) Problem (finding) degenerative disorde r of macula Payers Payer name Insurance type Covered green party ID Authoriza tion(s) [facility] [id number] Social History Type Description Quantity Date Captured Comments Alcohol Use Details occasional w ine/beer rarely Caffeine Use Details Unknown Tobacco Use Status No Information Smoking Status Never smoker Sex Male Chief Complaint And Reason For Visit No Information Reason For Referral Reason For Referral No [...]
--- OUTSIDE RECORDS SUMMARY | 2024-11-14 15:37 | XMS_ITS | Clinical Summary ---
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 Gender Identity Not on file Sexual Orientation Not on file Plan of Treatment Health Maintenance Due Date Last Done Comments Colorectal Cancer Screening Colonoscopy (10 Years) 1971 Annual Physical 1974 Hepatitis C 1989 DTaP, Tdap and Td Vaccines ( 1 - Tdap) 1990 Hepatitis B Vaccines (1 of 3 - 19+ 3-dose series) 1990 Pneumococcal Vaccine: 50+ Ye ars (1 of 1 - PCV) 2021 Zoster Vaccines (1 of 2) 2021 COVID-19 Vaccine (1 - 2023-2 5 season) 2023 Meningococcal B Vaccine Aged Out No l onger eligible based on patient's age to complete this topic Meningococcal Vaccine Aged Out No katy margaret eligible based on patient's age to complete this topic RSV Immunizations Under 20 Months Aged Out No longer eligible based on patient's age to complete this topic
--- OUTSIDE RECORDS SUMMARY | 2024-11-14 15:39 | XMS_ITS | Continuity of Care Document ---
Author Organization [facility] Address [address] [place] [phone] Phone Care Team Providers Care Manufacturing Executive Name Role Phone Tree Ortega MD, MD Unavailable Unavailable Allergies, Adverse Reactions, Alerts Substance Reaction Status Criticality No Known allergies Procedures Procedure Date OFFICE/OUTPATIENT VISIT, EST OFFICE/OUTPATIENT VISIT, [facility] Advance Directives Directive Yes / [...] Providers Copied on Encounter OFFICE/OUTPA TIENT VISIT, [facility], [address] [place] [address], [id number] tel:[phone] [facility] Other disorders of eyelid 3 Shannon Leavitt. [facility], [address] [place] [address], [id number]. tel:[phone] Referring Provider: Yuan Roach, [address] [facility], [place], [address]. tel:[phone] OFFICE/OUTPA TIENT VISIT, [facility], [address] [place], [place], [id number] tel:[phone] ABBIE [place] Conjunctivitis, unspecifiedOthe r disorders of eyelid 3 Jose Bolden. [address], [place], [address], [place]. tel:[phone] Family History Family Member Type Diagnosis Age At Onset Grandmother (p) Problem (finding) degenerative disorde r of macula Payers Payer name Insurance type Covered democrat ID Authoriza tion(s) [facility] [id number] Social History Type Description Quantity Date Captured [...]
[2024-11-14 15:44] VITALS: BP 142/68; PULSE 74; RESP 14; TEMP 36.6; O2SAT 98
--- NOTE | 2024-11-14 15:49 | ED_ITS ---
HPI - URI/Sore Throat General Chief Complaint: Upper Respiratory Infection Stated Complaint: Cough Time Seen by Provider: 11/14/24 15:49 History of Present Illness HPI Narrative: 54-year-old male presented for strep test. Says he does not have a sore throat, but family has had strep. Pt endorses chronic cough due to chronic bronchitis and sinusitis. Denies any new symptoms. Related Data Home Medications ?Medication ?Instructions ?Recorded ?Confirmed ?Last Taken ?Type No Home Medications 11/14/24 11/14/24 Unknown History Allergies Allergy/AdvReac Type Severity Reaction Status Date / Time No Known Allergies Allergy Verified 11/14/24 15:52 Review of Systems Review of Systems: CONSTITUTIONAL: Denies body aches, fever, chills, or sweats. EYES: Denies visual changes, redness, or discharge. ENT: Denies sore throat rhinorrhea, congestion, or otalgia. CARDIOVASCULAR: Denies chest pain, palpitations, or edema. RESPIRATORY: Denies dyspnea. GASTROINTESTINAL: Denies abdominal pain, nausea, vomiting, or diarrhea. SKIN: Denies rash NEUROLOGIC: Denies headache PMFSH Past Medical History Medical History Cubital tunnel syndrome on left Trigger finger of left hand Mass of skin of right elbow Chronic cough Acute recurrent sinusitis BMI 35.0-35.9,adult Seasonal allergies Acute bacterial sinusitis Sleep apnea Cough (~05/2019) Carpal tunnel syndrome on left Trigger finger of right hand Surgical History Surgical History H/O umbilical hernia repair 04/17/21 Status post excision of lipoma (~05/23/18) Rt elbow S/P scrotal varicocelectomy (~1991) On the left side x 2. and also '93 History of tonsillectomy History of repair of rotator cuff (~1992) Family History Family History Father Emphysema of lung Pulmonary fibrosis Social History Social History Smoking status: Never smoker Second hand tobacco smoke exposure: No Alcohol intake: current Drinks per week: 1 Alcohol use details: RARE Substance use: never Substance use type: does not use Lack of Transportation: No Lack of Food: Never True Current Housing: I Have Housing Concerned About Future Housing: No Difficulty Paying Gas/Electric Bills: No Difficulty Paying for Meds: No Currently Unemployed: No Education: Trade/Vocational Certificate Difficulty w/ Childcare or Family Care: No Living arrangements: with family Occupation/Education: occupation 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 EYES: conjunctivae clear ENT: Mucous membranes moist. TM pearly burgess with normal light reflex bilaterally; no tragal tenderness. Oropharynx mildly erythematous without lesions. Tonsils absent. PND noted. No drooling, no hoarseness, no trismus, uvula midline. No tripod positioning, hot potato voice, or soft palate swelling. NECK: Supple. No lymphadenopathy CHEST: Clear to auscultation, breath sounds equal. No respiratory distress, speaks in full sentences. HEART: Regular rate and rhythm. No murmur heard. SKIN: Warm, dry, no rash. NEURO: Alert and oriented x3. Course Course Emergency Course: Patient is aware of diagnosis, understands and agrees to treatment plan. Antici con guidance given. Patient agrees to follow-up as directed and is aware of reasons to seek care at the emergency department. Portions of this record may have been created with voice recognition software Level of Care: Express Care Visit Vital Signs Vital signs: Vital Signs Temperature 97.8 F 11/14/24 15:44 Pulse Rate 74 11/14/24 15:44 Respiratory Rate 14 11/14/24 15:44 Blood Pressure 142/68 H 11/14/24 15:44 Pulse Oximetry 98 11/14/24 15:44 Oxygen Delivery Room Air 11/14/24 15:44 Temperature 97.8 F 11/14/24 15:44 Pulse Rate 74 11/14/24 15:44 Respiratory Rate 14 11/14/24 15:44 Blood Pressure 142/68 H 11/14/24 15:44 Pulse Oximetry 98 11/14/24 15:44 Oxygen Delivery Room Air 11/14/24 15:44 MDM - URI/Sore Throat MDM Narrative Medical decision making narrative: neg strep result reviewed with pt. will culture. Advise supportive treatments. Patient is appropriate for outpatient treatment and follow-up. Differential Diagnosis Differential diagnosis: Likely upper respiratory infection, viral infection and pharyngitis Discharge Plan Discharge Clinical Impression: Post-nasal drainage Patient Disposition: Home Condition: Stable Instructions: Antibiotic Form, Strep Throat (ED) Additional Instructions: Rapid strep swab was negative today You will be notified in a few days if the culture comes back positive for strep, and appropriate antibiotics will be called in at that time. if symptoms are due to a viral illness, it is not treated with antibiotics. Viral symptoms can be present for up to 10-14 days. Recommendations: Flonase spray and Zyrtec for sinus congestion Cough syrup may cause drowsiness; avoid driving or take it at night time. Tylenol every 8 hours as needed for pain/fever Soft foods, cool liquids, warm tea. Gargle with warm saltwater twice a day. Chloraseptic spray and throat lozenges. Rest and stay hydrated. --Follow up with your PCP --Go to the ER immediately if you cannot swallow your saliva, trouble breathing/wheezing, throat swelling, pain is persistent and severe Patient Language: Bangladeshi Prescriptions: No Action No Home Medications Follow-up/Referrals: Julita Cooley APRN [Primary Care Provider] - Time of Disposition: 16:02
[2024-11-14 15:59] LABS: EDSTREPNEGPOS1 Negative (Negative)
== END 2024-11-14 16:03 | disposition home or self-care (01) ==
PROVIDERS: Emergency Provider Nurse Practitioner Family; PCP Nurse Practitioner Adult Health
DX: R09.82 Postnasal drip (principal)
CPT/HCPCS: 87880; 99212; G0463

== ENCOUNTER 2024-12-11 15:38 | Outpatient (CLI) | payer OTHER, SELFPAY ==
--- NOTE | ~2024-12-11 | CT_ITS ---
CT Scan of the Chest without Contrast: Clinical Indication: Pulmonary nodule Technique: Contiguous sections were acquired throughout the chest without intravenous contrast. Dose reduction technique was used on this scan by utilizing automated exposure control and iterative recon struction technique. The dose-length product (DLP) was 378.05 mGy-cm. COMPARISON: 12/14/2022 Findings: There is no evidence of any significant mediastinal, hilar or axillary lymphadenopathy. The mediastin al soft tissues appear normal. There is no evidence of pleural or pericardial effusion. Stable 5 mm groundglass nodule in the right lower lobe (axial image 76). Images through the upper abdomen reveal no abnormalities. Impression: Stable 5 mm right lower lobe groundglass nodule. Reviewed, dictated and finalized at location . Impression: Stable 5 mm right lower lobe groundglass nodule.
== END 2024-12-11 15:39 | disposition home or self-care (01) ==
PROVIDERS: PCP Nurse Practitioner Adult Health; Visit Provider Nurse Practitioner Family
DX: R91.1 Solitary pulmonary nodule (principal)
CPT/HCPCS: 71250

== ENCOUNTER 2025-02-22 08:09 | Outpatient (CLI) | payer OTHER, SELFPAY ==
--- OUTSIDE RECORDS SUMMARY | 2025-02-22 08:14 | XMS_ITS | Clinical Summary ---
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
[2025-02-22 18:30] LABS: Hematocrit 47.9 % (42.0-52.0); Hemoglobin 15.2 g/dL (14.0-18.0); Mean Corpuscular HGB Conc 31.7 g/dl (32-36); Mean Corpuscular Hemoglobin 28.8 pg (26-34); Mean Corpuscular Volume 90.9 fl (80-100); Platelet Count Result 216 k/mm3 (150-375); Red Blood Count 5.27 M/mm3 (4.6-6.20); White Blood Count 8.1 K/mm3 (4.5-10.0)
[2025-02-22 18:40] LABS: Alanine Aminotransferase 21 U/L (6-50); Albumin Level 4.0 g/dL (3.5-5.1); Alkaline Phosphatase 89 U/L (38-126); Anion Gap 6 mmol/L (4-12); Aspartate Amino Transferase 70 U/L (17-59); Bilirubin,Total 0.4 mg/dL (0.2-1.3); Blood Urea Nitrogen 18 mg/dL (9-20); Calcium 8.8 mg/dL (8.4-10.2); Carbon Dioxide 25 mmol/L (22-30); Chloride 108 mmol/L (98-107); Cholesterol 172 mg/dL (0-200); Estimated Glomerular Filt Rate > 60; Glucose 100 mg/dL (65-110); HDL Direct 30 mg/dL; Sodium 139 mmol/L (137-145); Total Protein 6.9 g/dL (6.3-8.2); Triglycerides 137 mg/dL (<150)
[2025-02-22 18:48] LABS: Potassium 4.1 mmol/L (3.4-5.0)
[2025-02-22 19:15] LABS: Prostate Specific Antigen 0.9 ng/mL (< OR = 4.0)
== END 2025-02-22 08:10 | disposition home or self-care (01) ==
PROVIDERS: PCP Nurse Practitioner Adult Health; Visit Provider Nurse Practitioner Adult Health
DX: Z00.00 Encounter for general adult medical examination without abnormal findings (principal); Z12.5 Encounter for screening for malignant neoplasm of prostate
CPT/HCPCS: 36415; 80053; 80061; 84153; 85027; G0103